=== PATIENT | female | born 1935 | race Caucasian/White ===

== ENCOUNTER 2017-12-29 00:25 | Inpatient (IN) | payer OTHER, MEDICARE ==
[~2017-12-29] VITALS: Ht 157.5 cm; Wt 71.8 kg
[2017-12-29] VITALS (19 sets, daily range): BP systolic 138–200; BP diastolic 63–100; PULSE 64–112; RESP 20–35; TEMP 98–98.4; O2SAT 92–98
[~2017-12-29 00:25] MED LIST: ASPI81TA82 PO; FURO20 PO; GLIP5 PO; METO50TA PO; MINO100T PO; OMEP20CA5 PO; PRED5TAB PO; SIMV40 PO
[2017-12-29] MEDS ORDERED: METO50TA PO (00:32)
[2017-12-29] MEDS ORDERED: ASPI81TA19 PO (00:32)
[2017-12-29] MEDS ORDERED: SIMV40TA PO (00:32)
[2017-12-29] MEDS ORDERED: GLIP1TAB49 PO (00:32)
[2017-12-29] MEDS ORDERED: SODIUM CHLORIDE 0.9% FLUSH 10 ML FLUSH IVF PRN (00:45)
[2017-12-29] MEDS ORDERED: NITROGLYCERIN 2% OINT 1 GM PACKET TOP ONE (00:45)
--- NOTE | 2017-12-29 01:11 | RADRPT ---
EXAM DATE/TIME: 12/29/2017 00:52 [facility] COMPARISON: CHEST SINGLE AP, January 04, 2016, 22:45. INDICATIONS : Short of breath. MEDICAL HISTORY : None. SURGICAL HISTORY : None. ENCOUNTER: Initial ACUITY: 1 day PAIN SCORE: 0/10 LOCATION: Bilateral chest FINDINGS: Mild cardiomegaly. Surgical clips overlie the mediastinum. There is linear scarring in the left midlu ng. Lungs otherwise clear. Osseous structures are intact. CONCLUSION: Linear scarring in the left midlung. Jose Rios MD on December 29, 2017 at 1:08 Board Certified Radiologist. This report was verified electronically.
[2017-12-29 01:13] LABS: ALBUMIN 3.4 GM/DL (3.4-5.0); ALT (GPT) 14 U/L (10-53); AST (GOT) 11 U/L (15-37); BICARBONATE 35.3 MEQ/L (21.0-32.0); BLOOD UREA NITROGEN 14 MG/DL (7-18); CALCIUM 8.3 MG/DL (8.5-10.1); CHLORIDE 90 MEQ/L (98-107); CREATININE 0.93 MG/DL (0.50-1.00); GLOMERULAR FILTRATION RATE 58 ML/MIN (>89); GLUCOSE,RANDOM 179 MG/DL (74-106); SODIUM (NA) 129 MEQ/L (136-145)
[2017-12-29] MEDS ORDERED: FUROSEMIDE 40 MG/4 ML VIAL IV PUSH ONE (01:15)
[2017-12-29 01:17] LABS: ALKALINE PHOSPHATASE 107 U/L (45-117); TOTAL BILIRUBIN ADULT 0.4 MG/DL (0.2-1.0); TOTAL PROTEIN 7.3 GM/DL (6.4-8.2); TROPONIN I LESS THAN 0.02 NG/ML (0.02-0.05)
[2017-12-29 01:27] LABS: AUTOMATED NEUTROPHIL # 9.3 TH/MM3 (1.8-7.7); BASOPHIL # 0.1 TH/MM3 (0-0.2); BASOPHIL % 0.5 % (0.0-2.0); EOSINOPHIL # 0.3 TH/MM3 (0-0.4); EOSINOPHIL % 2.1 % (0.0-4.0); HEMATOCRIT 42.4 % (35.0-46.0); HEMOGLOBIN 14.5 GM/DL (11.6-15.3); LYMPH % 27.1 % (9.0-44.0); LYMPHOCYTE # 3.9 TH/MM3 (1.0-4.8); MEAN CORPUSCULAR HEMOGLOBIN 30.5 PG (27.0-34.0); MEAN CORPUSCULAR HGB CONC 34.2 % (32.0-36.0); MEAN PLATELET VOLUME 7.2 FL (7.0-11.0); MONO % 6.1 % (0.0-8.0); MONOCYTE # 0.9 TH/MM3 (0-0.9); NEUT % 64.2 % (16.0-70.0); PLATELET COUNT 293 TH/MM3 (150-450); RED BLOOD COUNT 4.76 MIL/MM3 (4.00-5.30); RED CELL DISTRIBUTION WIDTH 14.1 % (11.6-17.2); WHITE BLOOD COUNT 14.4 TH/MM3 (4.0-11.0)
[2017-12-29 01:28] LABS: INTERNATIONAL NORMALIZED RATIO 1.1 RATIO; PROTHROMBIN TIME - PATIENT 10.7 SEC (9.8-11.6)
--- NOTE | 2017-12-29 05:21 | PD ---
HPI . Chest pain Chief Complaint: Chest Pain Time Seen by Provider: 00:33 Travel History International Travel<30 days: No Contact w/Intl Traveler<30days: No Traveled to known affect area: No History of Present Illness HPI 82-year-old female complains of having substernal right-sided chest pain for the past several hours. Patient administered a nitroglycerin, with some relief. Patient also has significant dyspnea, with orthopnea. Patient denies any fever chills sweats or cough. Patient notes that the chest pain is like a dull squeezing ache. Pain is currently resolved [facility] Past Medical History Narrative Medical Past medical history reviewed Asthma: Yes Cardiovascular Problems: Yes Congestive Heart Failure: Yes COPD: Yes Diabetes: Yes Patient Takes Glucophage: Yes Diminished Hearing: No Hypertension: Yes Respiratory: Yes Immunizations Current: Yes Myocardial Infarction: Yes Tetanus Vaccination: Unknown Influenza Vaccination: No ?: Not Past Surgical History Cardiac Surgery: Yes (CABG in 2007) Pacemaker: No Social History Alcohol Use: No Tobacco Use: Yes Substance Use: No Allergies-Medications (Allergen,Severity, Reaction): Coded Allergies: morphine (Unverified Allergy, Severe, 12/29/17) codeine (Unverified Allergy, Intermediate, NAUSEA, 12/29/17) penicillin G (Unverified Allergy, Mild, 12/29/17) Reported Meds & Prescriptions Reported Meds & Active Scripts Active Reported Simvastatin 40 Mg Tab 40 Mg PO HS Metoprolol Tartrate 50 Mg Tab 50 Mg PO BID Aspir-Low (Aspirin) 81 Mg Tabdr 81 Tab PO DAILY Glipizide ER (Glipizide) 5 Mg Lior 5 Mg PO DAILY Take with breakfast or first main meal of the day. Narrative Medication Allergies and medications reviewed Review of Systems General / Constitutional: No: Fever Eyes: No: Visual changes HENT: No: Headaches Cardiovascular: Positive: Chest Pain or Discomfort, Dyspnea on exertion Respiratory: Positive: Shortness of Breath, Orthopnea, No: Hemoptysis, Stridor , Night Sweats, Pleuritic Pain Gastrointestinal: No: Abdominal Pain Genitourinary: No: Dysuria Musculoskeletal: No: Pain Skin: No Rash Neurologic: No: Weakness Psychiatric: No: Depression Endocrine: No: Polydipsia Hematologic/Lymphatic: No: Easy Bruising Physical Exam Narrative GENERAL: Awake and alert, mild to moderate respiratory distress, vital signs decreased oxygen saturation on room air 88%, 94% on 4 L nasal cannula SKIN: Warm and dry. No diaphoresis cyanosis or pallor HEAD: Atraumatic. Normocephalic. EYES: Pupils equal and round. No scleral icterus. No injection or drainage. ENT: No nasal bleeding or discharge. Mucous membranes pink and moist. NECK: Trachea midline. No JVD. Supple, no stridor CARDIOVASCULAR: Regular rate and rhythm. RESPIRATORY: Slight tachypnea, rales at bases, difficult exam secondary to body habitus. GASTROINTESTINAL: Abdomen soft, non-tender, nondistended. Hepatic and splenic margins not palpable. MUSCULOSKELETAL: Extremities without clubbing, cyanosis, or edema. No obvious deformities. NEUROLOGICAL: Awake and alert. No obvious focal deficits PSYCHIATRIC: Appropriate mood and affect; insight and judgment normal. Data Data Last Documented VS Vital Signs Date Time Temp Pulse Resp B/P (MAP) Pulse Ox O2 Delivery O2 Flow Rate FiO2 12/29/17 04:46 71 24 174/74 (107) 96 BiPAP 35 12/29/17 02:24 2.00 12/29/17 00:33 98.0 Orders Orders Electrocardiogram (12/29/17 00:42) B-Type Natriuretic Peptide (12/29/17 00:42) Ckmb (Isoenzyme) Profile (12/29/17 00:42) Complete Blood Count With Diff (12/29/17 00:42) Comprehensive Metabolic Panel (12/29/17 00:42) Magnesium (Mg) (12/29/17 00:42) Prothrombin Time / Inr (Pt) (12/29/17 00:42) Act Partial Throm Time (Ptt) (12/29/17 00:42) Troponin I (12/29/17 00:42) Chest, Single Ap (12/29/17 00:42) Ecg Monitoring (12/29/17 00:42) Bilateral Bp Monitoring (12/29/17 00:42) Iv Access Insert/Monitor (12/29/17 00:42) Oximetry (12/29/17 00:42) Oxygen Administration (12/29/17 00:42) Nitroglycerin 2% Oint (Nitroglycerin 2% (12/29/17 00:45) Sodium Chloride 0.9% Flush (Ns Flush) (12/29/17 00:45) Furosemide Inj (Lasix Inj) (12/29/17 01:15) Arterial Blood Gas (Abg) (12/29/17 ) Troponin I (12/29/17 03:23) Arterial Blood Gas (Abg) (12/29/17 04:23) Labs Laboratory Tests Test 12/29/17 00:45 12/29/17 02:35 12/29/17 03:45 White Blood Count 14.4 TH/MM3 Red Blood Count 4.76 MIL/MM3 Hemoglobin 14.5 GM/DL Hematocrit 42.4 % Mean Corpuscular Volume 89.0 FL Mean Corpuscular Hemoglobin 30.5 PG Mean Corpuscular Hemoglobin Concent 34.2 % Red Cell Distribution Width 14.1 % Platelet Count 293 TH/MM3 Mean Platelet Volume 7.2 FL Neutrophils (%) (Auto) 64.2 % Lymphocytes (%) (Auto) 27.1 % Monocytes (%) (Auto) 6.1 % Eosinophils (%) (Auto) 2.1 % Basophils (%) (Auto) 0.5 % Neutrophils # (Auto) 9.3 TH/MM3 Lymphocytes # (Auto) 3.9 TH/MM3 Monocytes # (Auto) 0.9 TH/MM3 Eosinophils # (Auto) 0.3 TH/MM3 Basophils # (Auto) 0.1 TH/MM3 CBC Comment DIFF FINAL Differential Comment Prothrombin Time 10.7 SEC Prothromb Time International Ratio 1.1 RATIO Activated Partial Thromboplast Time 28.7 SEC Blood Urea Nitrogen 14 MG/DL Creatinine 0.93 MG/DL Random Glucose 179 MG/DL Total Protein 7.3 GM/DL Albumin 3.4 GM/DL Calcium Level 8.3 MG/DL Magnesium Level 2.0 MG/DL Alkaline Phosphatase 107 U/L Aspartate Amino Transf (AST/SGOT) 11 U/L Alanine Aminotransferase (ALT/SGPT) 14 U/L Total Bilirubin 0.4 MG/DL Sodium Level 129 MEQ/L Potassium Level 4.2 MEQ/L Chloride Level 90 MEQ/L Carbon Dioxide Level 35.3 MEQ/L Anion Gap 4 MEQ/L Estimat Glomerular Filtration Rate 58 ML/MIN Total Creatine Kinase 89 U/L Troponin I LESS THAN 0.02 NG/ML LESS THAN 0.02 NG/ML B-Type Natriuretic Peptide 465 PG/ML Blood Gas Puncture Site RT RADIAL Blood Gas Patient Temperature 98.6 Blood Gas HCO3 35 mmol/L Blood Gas Base Excess 7.8 mmol/L Blood Gas Oxygen Saturation 93 % Arterial Blood pH 7.25 Arterial Blood Partial Pressure CO2 83 mmHg Arterial Blood Partial Pressure O2 85 mmHG Arterial Blood Oxygen Content 19.2 Vol % Arterial Blood Carboxyhemoglobin 1.9 % Arterial Blood Methemoglobin 0.5 % Blood Gas Hemoglobin 14.7 G/DL Oxygen Delivery Device NASAL CANNULA Blood Gas Liter Flow 3 L/M [facility] Medical Decision Making Medical Screen Exam Complete: Yes Emergency Medical Condition: Yes Medical Record Reviewed: Yes Differential Diagnosis Chest pain, CHF, COPD exacerbation, dyspnea Narrative Course EKG sinus rhythm at 72 bpm, ST depressions in leads I to with reciprocal elevation in aVR, biphasic waves in V4 V5 and V6. Compared to old EKGs, no significant change. Frequent PVCs noted on monitor worker Chest x-ray no acute changes. Scarring at bases. Patient's telemetry examinations reviewed, no significant abnormality is. Patient's troponin is normal and flat at 0 and 3 hours. ABG performed, patient has decreased pH is 7.25 with marked hypercapnia. Patient is hesitant to use CPAP mask, patient's oxygen dialed down from 4 L to 2 L to improve patient's minute ventilation. Patient had a repeat ABG performed with no interval improvement. Patient was started on CPAP. Admitted to hospitalist service. Diagnosis Primary Impression: COPD exacerbation Additional Impression: Chest pain Qualified Codes: R07.9 - Chest pain, unspecified Admitting Information Admitting Physician Requests: Admit Alex Agosto MD Dec 29, 2017 05:21
[2017-12-29] MEDS ORDERED: SODIUM CHLOR 0.9% 1000 ML INJ 1,000 ML IV SCH (06:27)
[2017-12-29] MEDS ORDERED: MAGNESIUM SULFATE INJ 2 GM in SODIUM CHLORIDE 0.9% INJ 96 ML IV PRN (06:30)
[2017-12-29] MEDS ORDERED: POTASSIUM CHLORIDE 25 MEQ EFFERVESCENT TAB PO PRN (06:30)
[2017-12-29] MEDS ORDERED: DEXTROSE 50% IN WATER 50 ML VIAL(D50) IV PUSH PRN (06:30)
[2017-12-29] MEDS ORDERED: MISCELLANEOUS NURSING INFORMATION XX SCH (06:30)
[2017-12-29] MEDS ORDERED: ONDANSETRON HCL 4 MG/2 ML VIAL IV PUSH PRN (06:30)
[2017-12-29] MEDS ORDERED: MAGNESIUM HYDROXIDE SUSP 30 ML CUP PO PRN (06:30)
[2017-12-29] MEDS ORDERED: MAGNESIUM SULFATE INJ 4 GM in SODIUM CHLORIDE 0.9% INJ 92 ML IV PRN (06:30)
[2017-12-29] MEDS ORDERED: POTASSIUM PHOSPHATE INJ 30 MMOL in SODIUM CHLOR 0.9% 250 ML INJ 250 ML IV PRN (06:30)
[2017-12-29] MEDS ORDERED: POTASSIUM PHOSPHATE MONOBASIC 500 MG TAB PO/TUBE PRN (06:30)
[2017-12-29] MEDS ORDERED: methylPREDNISolone SOD SUCC 125 MG/2 ML VIAL IV PUSH ONE (06:30)
[2017-12-29] MEDS ORDERED: POTASSIUM CHLOR 40 MEQ PREMIX 100 ML IV PRN ×2 (06:30)
[2017-12-29] MEDS ORDERED: POTASSIUM CHLOR 20 MEQ PREMIX 100 ML IV PRN ×2 (06:30)
[2017-12-29] MEDS ORDERED: SODIUM PHOSPHATE INJ 30 MMOL in SODIUM CHLOR 0.9% 250 ML INJ 240 ML IV PRN (06:30)
[2017-12-29] MEDS ORDERED: CHLORHEXIDINE GLUCONATE 2 % 1 PACK (2 CLOTHS) TOP PRN (06:30)
[2017-12-29] MEDS ORDERED: MAGNESIUM OXIDE 400 MG TAB PO PRN (06:30)
[2017-12-29] MEDS ORDERED: RESP: ALBUTEROL 2.5 MG/IPRATROPIUM 0.5 MG NEB (PRN) INH (06:30)
[2017-12-29] MEDS ORDERED: POTASSIUM PHOSPHATE MONOBASIC 500 MG TAB PO PRN (06:30)
[2017-12-29] MEDS: RESP: ALBUTEROL 2.5 MG/IPRATROPIUM 0.5 MG NEB (SCH) INH ×4 (07:27→21:11)
[2017-12-29] MEDS: ENOXAPARIN SODIUM 40 MG/0.4 ML SYRINGE SQ SCH (12:47)
[2017-12-29] MEDS: ASPIRIN EC 81 MG TABEC PO SCH (12:48)
[2017-12-29] MEDS: DOCUSATE SODIUM 50 MG/SENNA 8.6 MG TAB PO SCH ×2 (12:48→21:00)
[2017-12-29] MEDS ORDERED: POTASSIUM CHLORIDE 10 MEQ CONTROLLED RELEASE TAB PO ONE (14:30)
--- NOTE | 2017-12-29 15:14 | HHI.HP ---
HPI Service Critical Care Medicine Primary Care Physician No Primary Care Physician Admission Diagnosis Overdose Diagnosis: Chief Complaint: shortness of breath Travel History International Travel<30 Days: No Contact w/Intl Traveler <30 Da: No Traveled to Known Affected Are: No History of Present Illness Seen and evaluated around 06:20am. delayed note entry. 82yF with h/o o2 dependent copd who presents with worsening SOB over the past 3 days. states this has accompanied with worsening sputum production which "looks like phegm". denies change in color or consistency in sputum. denies fever, chills. denies chest pain. no sick contacts. initially placed on o2 without improvement in her abg which showed significant hypercarbia and pco2 in the 80s. placed on BiPAP. history difficult to obtain due to tachypnea and bipap in place. ROS otherwise negative. Review of Systems ROS Limitations: Clinical Condition Constitutional: DENIES: Diaphoretic episodes, Fatigue, Fever, Chills Respiratory: COMPLAINS OF: Wheezing, Sputum production, Shortness of breath, DENIES: Cough, Hemoptysis Cardiovascular: DENIES: Chest pain, Palpitations, Dyspnea on Exertion, PND, Lower Extremity Edema Gastrointestinal: DENIES: Abdominal pain, Black stools, Bloody stools, Constipation, Diarrhea, Nausea, Vomiting Past Family Social History Allergies: Coded Allergies: morphine (Unverified Allergy, Severe, 12/29/17) codeine (Unverified Allergy, Intermediate, NAUSEA, 12/29/17) penicillin G (Unverified Allergy, Mild, 12/29/17) Past Medical History Asthma CHF, unknown type COPD, o2 dependent Diabetes HTN prior [place] Past Surgical History CABG in 2007 Reported Medications Simvastatin 40 Mg Tab 40 Mg PO HS Metoprolol Tartrate 50 Mg Tab 50 Mg PO BID Aspir-Low (Aspirin) 81 Mg Tabdr 81 Tab PO DAILY Glipizide ER (Glipizide) 5 Mg Lior 5 Mg PO DAILY Take with breakfast or first main meal of the day. Active Ordered Medications See MAR Family History reviewed and found to be noncontributory to her acute illness. Social History +tob use, denies etoh, doa. Physical Exam Vital Signs Vital Signs Date Time Temp Pulse Resp B/P (MAP) Pulse Ox O2 Delivery O2 Flow Rate FiO2 12/29/17 11:35 95 Nasal Cannula 2.00 12/29/17 10:00 77 12/29/17 08:20 12/29/17 08:00 71 12/29/17 08:00 72 12/29/17 07:29 95 35 12/29/17 07:00 74 164/70 (101) 94 BiPAP 12/29/17 06:12 71 20 170/72 (104) 94 BiPAP 35 12/29/17 04:46 71 24 174/74 (107) 96 BiPAP 35 12/29/17 04:45 97 BiPAP 35 12/29/17 04:45 98 28 12/29/17 03:49 68 20 146/67 (93) 95 Nasal Cannula 12/29/17 02:24 64 20 149/63 (91) 97 Nasal Cannula 2.00 12/29/17 02:12 97 Nasal Cannula 2.00 12/29/17 00:37 74 24 149/71 (97) 96 Nasal Cannula 12/29/17 00:33 98.0 70 22 200/100 (133) 98 Physical Exam GENERAL: Elderly female, sitting in bed, acute respiratory distress HEENT: Normocephalic. Atraumatic. Pupils equal, round, reactive, conjugate. Mucous membranes are moist NECK: Trachea is midline. There is no JVD. CHEST: Labored. Tachypneic. BiPAP in place. Bilateral expiratory wheezing CARDIOVASCULAR: Tachycardic rate, regular rhythm. Sinus by telemetry ABDOMEN: Soft, nontender, nondistended. No guarding. MUSCULOSKELETAL: Pulses 2+. No peripheral edema. NEUROLOGICAL: RASS -1. Follows commands. No focal deficits. Laboratory Laboratory Tests Test 12/29/17 00:45 12/29/17 02:35 12/29/17 03:45 12/29/17 04:30 White Blood Count 14.4 Red Blood Count 4.76 Hemoglobin 14.5 Hematocrit 42.4 Mean Corpuscular Volume 89.0 Mean Corpuscular Hemoglobin 30.5 Mean Corpuscular Hemoglobin Concent 34.2 Red Cell Distribution Width 14.1 Platelet Count 293 Mean Platelet Volume 7.2 Neutrophils (%) (Auto) 64.2 Lymphocytes (%) (Auto) 27.1 Monocytes (%) (Auto) 6.1 Eosinophils (%) (Auto) 2.1 Basophils (%) (Auto) 0.5 Neutrophils # (Auto) 9.3 Lymphocytes # (Auto) 3.9 Monocytes # (Auto) 0.9 Eosinophils # (Auto) 0.3 Basophils # (Auto) 0.1 CBC Comment DIFF FINAL Differential Comment Prothrombin Time 10.7 Prothromb Time International Ratio 1.1 Activated Partial Thromboplast Time 28.7 Blood Urea Nitrogen 14 Creatinine 0.93 Random Glucose 179 Total Protein 7.3 Albumin 3.4 Calcium Level 8.3 Magnesium Level 2.0 Alkaline Phosphatase 107 Aspartate Amino Transf (AST/SGOT) 11 Alanine Aminotransferase (ALT/SGPT) 14 Total Bilirubin 0.4 Sodium Level 129 Potassium Level 4.2 Chloride Level 90 Carbon Dioxide Level 35.3 Anion Gap 4 Estimat Glomerular Filtration Rate 58 Total Creatine Kinase 89 Troponin I LESS THAN 0.02 LESS THAN 0.02 B-Type Natriuretic Peptide 465 Blood Gas Puncture Site RT RADIAL RT RADIAL Blood Gas Patient Temperature 98.6 98.6 Blood Gas HCO3 35 35 Blood Gas Base Excess 7.8 7.9 Blood Gas Oxygen Saturation 93 93 Arterial Blood pH 7.25 7.26 Arterial Blood Partial Pressure CO2 83 81 Arterial Blood Partial Pressure O2 85 83 Arterial Blood Oxygen Content 19.2 19.5 Arterial Blood Carboxyhemoglobin 1.9 1.8 Arterial Blood Methemoglobin 0.5 0.5 Blood Gas Hemoglobin 14.7 14.9 Oxygen Delivery Device NASAL CANNULA NASAL CANNULA Blood Gas Liter Flow 3 2 Test 12/29/17 06:45 12/29/17 10:45 Blood Gas Puncture Site RT RADIAL RT RADIAL Blood Gas Patient Temperature 98.6 98.6 Blood Gas HCO3 35 34 Blood Gas Base Excess 8.1 7.9 Blood Gas Oxygen Saturation 93 91 Arterial Blood pH 7.27 7.35 Arterial Blood Partial Pressure CO2 78 62 Arterial Blood Partial Pressure O2 78 70 Arterial Blood Oxygen Content 19.7 18.7 Arterial Blood Carboxyhemoglobin 1.8 1.9 Arterial Blood Methemoglobin 0.6 0.7 Blood Gas Hemoglobin 15.1 14.6 Oxygen Delivery Device BIPAP BiPAP Blood Gas Ventilator Setting IPAP12 [id number] Blood Gas Inspired Oxygen 35 35 Result Diagram: 12/29/174412/29/1744 Imaging Last Impressions Chest X-Ray 12/29/1741 Signed Impressions: Service Date/Time: Friday, December 29, 2017 00:52 - CONCLUSION: Linear scarring in the left midlung. MD Jona Skinner VTE Risk Assessment Caprini VTE Risk Assessment: Mod/High Risk (score >= 2) Caprini Risk Assessment Model Point Value = 1 Point Value = 2 Point Value = 3 Point Value = 5 Age 41-60 Minor surgery BMI > 25 kg/m2 Swollen legs Varicose veins or History of unexplained or recurrent spontaneous Oral contraceptives or hormone replacement Sepsis (< 1 month) Serious lung disease, including pneumonia (< 1 month) Abnormal pulmonary function Acute myocardial infarction Congestive heart failure (< 1 month) History of inflammatory bowel disease Medical patient at bed rest Age 61-74 Arthroscopic surgery Major open surgery (> 45 min) Laparoscopic surgery (> 45 min) Malignancy Confined to bed (> 72 hours) Immobilizing plaster cast Central venous access Age >= 75 History of VTE Family history of VTE Factor V Leiden Prothrombin [id number] Lupus anticoagulant Anticardiolipin antibodies Elevated serum homocysteine Heparin-induced thrombocytopenia Other congenital or acquired thrombophilia Stroke (< 1 month) Elective arthroplasty Hip, pelvis, or leg fracture Acute spinal cord injury (< 1 month) Prophylaxis Regimen Total Risk Factor Score Risk Level Prophylaxis Regimen 0-1 Low Early ambulation 2 Moderate Order ONE of the following: *Sequential Compression Device (SCD) *Heparin 5000 units SQ BID 3-4 Higher Order ONE of the following medications: *Heparin 5000 units SQ TID *Enoxaparin/Lovenox 40 mg SQ daily (WT < 150 kg, CrCl > 30 mL/min) *Enoxaparin/Lovenox 30 mg SQ daily (WT < 150 kg, CrCl > 10-29 mL/min) *Enoxaparin/Lovenox 30 mg SQ BID (WT < 150 kg, CrCl > 30 mL/min) AND/OR *Sequential Compression Device (SCD) 5 or more Highest Order ONE of the following medications: *Heparin 5000 units SQ TID (Preferred with Epidurals) *Enoxaparin/Lovenox 40 mg SQ daily (WT < 150 kg, CrCl > 30 mL/min) *Enoxaparin/Lovenox 30 mg SQ daily (WT < 150 kg, CrCl > 10-29 mL/min) *Enoxaparin/Lovenox 30 mg SQ BID (WT < 150 kg, CrCl > 30 mL/min) AND *Sequential Compression Device (SCD) Assessment and Plan Assessment and Plan Assessment: 82-year-old female with history of oxygen dependent COPD and presents with what appears to be clinically COPD exacerbation. She denies any sick contacts or other history to suggest infectious etiology. We will check flu swab. BiPAP, steroids, frequent nebs. Admit to ICU. COPD Exacerbation Acute hypoxic and hypercarbic respiratory failure requiring NIPPV - steroids - nebs - bipap - wean fio2 for goal spo2 > 88% - serial abg - avoid long-acting sedatives. SCDs SQH advance diet when respiratory distress improves. Admit to ICU. Henok Early MD Dec 29, 2017 15:14
[2017-12-29] MEDS: PANTOPRAZOLE SOD 20 MG DELAYED RELEASE TAB PO SCH ×2 (15:27→20:59)
[2017-12-29] MEDS: INSULIN NovoLIN REGULAR SUPPLEMENTAL SCALE SQ SCH ×2 (15:28→18:32)
[2017-12-29] MEDS: glipiZIDE 5 MG TAB PO SCH (16:00)
[2017-12-29] MEDS: methylPREDNISolone SOD SUCC 125 MG/2 ML VIAL IV PUSH SCH (20:59)
[2017-12-29] MEDS: PRAVASTATIN SOD 80 MG TAB PO SCH (20:59)
[2017-12-29] MEDS: METOPROLOL TARTRATE 50 MG TAB PO SCH (21:00)
--- NOTE | 2017-12-29 21:23 | EKG ---
Date Performed: 12/29/2017 Time Performed: 00:33:20 PTAGE: 82 years EKG: Sinus rhythm WITH OCCASIONAL VENTRICULAR PREMATURE COMPLEXES LEFT VENTRICULAR HYPERTROPHY AND ST-T CHANGE INFERIO R MYOCARDIAL INFARCTION ABNORMAL ECG INTERPRETATION BASED ON A DEFAULT AGE OF 40 YEARS PREVIOUS TRACING : 01/05/2016 03.57 Since the prior tracing, there has been no significan t change DOCTOR: David Maldonado Interpretating Date/Time 12/29/2017 21:21:39
[2017-12-29] MEDS: NITROGLYCERIN 0.4 MG SL 25 TABS/BTL SL PRN (22:41)
[2017-12-30] VITALS (16 sets, daily range): BP systolic 123–143; BP diastolic 56–72; PULSE 66–82; RESP 14–26; TEMP 97.1–98.6; O2SAT 92–99
[2017-12-30] MEDS: RESP: ALBUTEROL 2.5 MG/IPRATROPIUM 0.5 MG NEB (SCH) INH ×6 (00:22→20:45)
[2017-12-30] MEDS: INSULIN NovoLIN REGULAR SUPPLEMENTAL SCALE SQ SCH ×4 (00:24→18:41)
[2017-12-30] MEDS: CHLORHEXIDINE GLUCONATE 2 % 1 PACK (2 CLOTHS) TOP SCH (04:00)
[2017-12-30 04:38] LABS: HEMATOCRIT 40.6 % (35.0-46.0); HEMOGLOBIN 13.9 GM/DL (11.6-15.3); MEAN CELL VOLUME 88.7 FL (80.0-100.0); MEAN CORPUSCULAR HEMOGLOBIN 30.3 PG (27.0-34.0); MEAN CORPUSCULAR HGB CONC 34.2 % (32.0-36.0); MEAN PLATELET VOLUME 7.7 FL (7.0-11.0); PLATELET COUNT 272 TH/MM3 (150-450); RED BLOOD COUNT 4.58 MIL/MM3 (4.00-5.30); RED CELL DISTRIBUTION WIDTH 13.7 % (11.6-17.2); WHITE BLOOD COUNT 18.2 TH/MM3 (4.0-11.0)
[2017-12-30 05:03] LABS: BICARBONATE 31.8 MEQ/L (21.0-32.0); CALCIUM 9.1 MG/DL (8.5-10.1); CREATININE 1.35 MG/DL (0.50-1.00)
--- NOTE | 2017-12-30 06:34 | RADRPT ---
EXAM DATE/TIME: 12/30/2017 05:31 [facility] COMPARISON: CHEST SINGLE AP, December 29, 2017, 0:52. INDICATIONS : Short of breath. MEDICAL HISTORY : None. SURGICAL HISTORY : None. ENCOUNTER: Subsequent ACUITY: 2 days PAIN SCORE: Non-responsive. LOCATION: Bilateral chest FINDINGS: There is linear scarring in the left midlung, cardiomegaly and mediastinal clips. No consolidation. H igh riding humeral heads. CONCLUSION: No significant change has occurred. Jose Rios MD on December 30, 2017 at 6:32 Board Certified Radiologist. This report was verified electronically.
[2017-12-30] MEDS: NITROGLYCERIN 0.4 MG SL 25 TABS/BTL SL PRN (07:29)
[2017-12-30] MEDS: ENOXAPARIN SODIUM 40 MG/0.4 ML SYRINGE SQ SCH (08:56)
[2017-12-30] MEDS: methylPREDNISolone SOD SUCC 125 MG/2 ML VIAL IV PUSH SCH (08:58)
[2017-12-30] MEDS: PANTOPRAZOLE SOD 20 MG DELAYED RELEASE TAB PO SCH ×2 (09:00→20:58)
[2017-12-30] MEDS: ASPIRIN EC 81 MG TABEC PO SCH (09:01)
[2017-12-30] MEDS: DOCUSATE SODIUM 50 MG/SENNA 8.6 MG TAB PO SCH ×2 (09:03→20:59)
[2017-12-30] MEDS: METOPROLOL TARTRATE 50 MG TAB PO SCH ×2 (09:03→20:59)
[2017-12-30] MEDS: glipiZIDE 5 MG TAB PO SCH ×2 (09:18→16:52)
--- NOTE | 2017-12-30 15:00 | EKG ---
Date Performed: 12/29/2017 Time Performed: 22:00:50 PTAGE: 82 years EKG: Sinus rhythm with aberrantly conducted supraventricular complexes. LVH with secondary repolarization abnormality Anterolateral ST-T changes are probably due to ventricular hypertrophy Abnormal ECG PREVIOUS TRACING : 12/29/2017 00.33 PACs have increased since prior tracing. Clinical correlati on is recommended. DOCTOR: Kev Gonzalez Interpretating Date/Time 12/30/2017 15:00:05
--- NOTE | 2017-12-30 15:41 | HHI.PR ---
Subjective Remarks The patient was take her home medications. She says she does not have a lung doctor she follows up with regularly. She says she cannot tolerate steroids. She would like to walk around. Discussed with nursing at the bedside. Objective Vitals Vital Signs Date Time Temp Pulse Resp B/P (MAP) Pulse Ox O2 Delivery O2 Flow Rate FiO2 12/30/17 12:00 66 12/30/17 12:00 98.1 82 26 126/64 (84) 95 12/30/17 10:00 66 12/30/17 08:00 97.1 82 20 135/60 (85) 96 12/30/17 08:00 71 12/30/17 08:00 96 Nasal Cannula 2.00 12/30/17 07:40 95 Nasal Cannula 2.00 12/30/17 06:00 70 12/30/17 04:00 98.4 74 17 141/72 (95) 98 12/30/17 04:00 74 12/30/17 03:50 96 Nasal Cannula 2.00 12/30/17 02:00 73 12/30/17 00:24 99 35 12/30/17 00:00 80 12/30/17 00:00 98.6 80 14 143/62 (89) 98 12/29/17 22:00 112 12/29/17 21:14 95 Nasal Cannula 2.00 12/29/17 20:00 98.4 112 35 162/69 (100) 92 12/29/17 20:00 112 12/29/17 19:00 94 Nasal Cannula 2.00 35 12/29/17 18:00 103 12/29/17 16:00 98.4 92 22 143/78 (99) 92 12/29/17 16:00 92 I/O 12/29/17 12/29/17 12/29/17 12/30/17 12/30/17 12/30/17 07:00 15:00 23:00 07:00 15:00 23:00 Intake Total 440 ml Output Total 1150 ml 500 ml 600 ml Balance -1150 ml -60 ml -600 ml Intake Oral 440 ml Output Urine Total 1150 ml 500 ml 600 ml # Voids 2 # Bowel Movements 0 1 Result Diagram: 12/30/17 0345 12/30/17 034 Imaging Last Impressions Chest X-Ray 12/30/17 0600 Signed Impressions: Service Date/Time: December 05:31 - CONCLUSION: No significant change has occurred. Jose Rios MD Objective Remarks GENERAL: Elderly female, sitting in bed, comfortable. HEENT: Normocephalic. Atraumatic. Pupils equal, round, reactive, conjugate. Mucous membranes are moist NECK: Trachea is midline. There is no JVD. CHEST: Decreased air movement. CARDIOVASCULAR: Regular rate and rhythm. ABDOMEN: Soft, nontender, nondistended. No guarding. MUSCULOSKELETAL: Pulses 2+. No peripheral edema. NEUROLOGICAL: Follows commands. No focal deficits. Medications and IVs Current Medications Medications (Trade) Dose Ordered Sig/Linden Route Start Time Stop Time Status Last Admin (NS Flush) 2 ml UNSCH PRN IVF 12/29/17 00:45 (Ecotrin Ec) 81 mg DAILY PO 12/29/17 09:00 12/30/17 09:01 (Pravachol) 80 mg HS PO 12/29/17 21:00 12/29/17 20:59 Potassium Chloride 100 ml @ 50 mls/hr Q2H PRN IV 12/29/17 06:30 Potassium Chloride 100 ml @ 50 mls/hr Q2H PRN IV 12/29/17 06:30 (K-Lyte Cl Eff) 50 meq UNSCH PRN PO 12/29/17 06:30 Potassium Chloride 100 ml @ 25 mls/hr UNSCH PRN IV 12/29/17 06:30 Potassium Chloride 100 ml @ 50 mls/hr Q2H PRN IV 12/29/17 06:30 Magnesium Sulfate 4 gm/Sodium Chloride 100 ml @ 50 mls/hr UNSCH PRN IV 12/29/17 06:30 (Mag-Ox) 800 mg UNSCH PRN PO 12/29/17 06:30 Magnesium Sulfate 2 gm/Sodium Chloride 100 ml @ 50 mls/hr UNSCH PRN IV 12/29/17 06:30 (K-Phos) 2,000 mg Q4H PRN PO 12/29/17 06:30 Sodium Phosphate 30 mmol/Sodium Chloride 250 ml @ 42 mls/hr UNSCH PRN IV 12/29/17 06:30 (K-Phos) 2,000 mg UNSCH PRN PO/TUBE 12/29/17 06:30 Potassium Phosphate 30 mmol/ Sodium Chloride 260 ml @ 42 mls/hr UNSCH PRN IV 12/29/17 06:30 (D50w (Vial) Inj) 25 ml UNSCH PRN IV PUSH 12/29/17 06:30 (NovoLIN R SUPPLEMENTAL SCALE) 1 Q6HR SQ 12/29/17 12:00 12/30/17 06:31 (SoluMEDROL INJ) 60 mg Q12HR IV PUSH 12/29/17 21:00 12/30/17 08:58 (Duoneb Neb) 1 ampule Q2HR NEB PRN INH 12/29/17 06:30 (Duoneb Neb) 1 ampule Q4HR NEB INH 12/29/17 08:00 12/30/17 11:52 (Zofran Inj) 4 mg Q6H PRN IV PUSH 12/29/17 06:30 Miscellaneous Information 1 Q361D XX 12/29/17 06:30 (Chlorhexidine 2% Cloth) 3 pack Taper DAILY@04 TOP 12/30/17 04:00 12/26/18 03:59 (Chlorhexidine 2% Cloth) 3 pack UNSCH PRN TOP 12/29/17 06:30 (Luz-Colace) 1 tab BID PO 12/29/17 09:00 12/30/17 09:03 (Milk Of Magnesia Liq) 30 ml Q12H PRN PO 12/29/17 06:30 (Lopressor) 50 mg BID PO 12/29/17 21:00 12/30/17 09:03 (Protonix) 20 mg BID PO 12/29/17 15:15 12/30/17 09:00 (Nitrostat Sl) 0.4 mg Q5M PRN SL 12/29/17 22:00 12/30/17 07:29 (Lovenox Inj) 30 mg Q24H SQ 12/31/17 09:00 (Glucotrol) 2.5 mg BID@08,17 PO 12/30/17 17:00 UNV A/P Assessment and Plan Acute hypoxic and hypercarbic respiratory failure/ COPD S/p BiPAP. She has a history of COPD and reports a history of asbestosis. CXR with scarring of right midlung. - dc steroids as pt endorses intolerance to them. - nebs. - bipap as needed. - wean fio2 for goal spo2 > 88%. - PT. - IS. - pulmonology consult requested. - IV doxycycline. Acute renal failure Possibly s/t overdiuresis. - hold home Bumex and losartan. - follow BMP. DM Glucose fluctuates. - d/c steroids. - continue home glipizide. - ISS. Hyponatremia Possibly chronic. - follow BMP. PPx: Heparin Navneet Gaitan DO Dec 30, 2017 15:41
[2017-12-30] MEDS ORDERED: PILL SPLITTER OTHER PRN (15:45)
[2017-12-30] MEDS: DOXYCYCLINE INJ 100 MG in SODIUM CHLORIDE 0.9% INJ 100 ML IV SCH (16:52)
[2017-12-30] MEDS: methylPREDNISolone SOD SUCC 40 MG/1 ML VIAL IV SCH (19:00)
--- NOTE | 2017-12-30 20:55 | RADRPT ---
EXAM DATE/TIME: 12/30/2017 20:30 [facility] COMPARISON: No previous studies available for comparison. INDICATIONS : Shortness of breath, congestion, and abnormal chest radiograph. RADIATION DOSE: 9.59 CTDIvol (mGy) MEDICAL HISTORY : Cardiovascular disease. Chronic obstructive pulmonary disease. Diabetes mellitus type 2. SURGICAL HISTORY : None. ENCOUNTER: Initial ACUITY: 1 day PAIN SCALE: 5/10 LOCATION: chest TECHNIQUE: Volumetric scanning of the chest was performed. Using automated exposure control and adjustment of t he mA and/or kV according to patient size, radiation dose was kept as low as reasonably achievable to obtain optimal diagnostic quality images. DICOM format image data is available electronically for r eview and comparison. Follow-up recommendations for detected pulmonary nodules are based at a minimum on nodule size and pa tient risk factors according to Fleischner Society Guidelines. FINDINGS: There is linear atelectasis or scarring at both lung bases similar in appearance to December 2015. Mi ld emphysema. There is no hilar, mediastinal or axillary adenopathy. Moderate to severe coronary calcifications. No acute findings in the upper abdomen. Degenerative disc disease in the thoracic spine. CONCLUSION: 1. No acute findings. Atelectasis and scarring mostly at the lung bases similar to 2016. Moderate to severe coronary calcifications. Michael Valladares MD on December 30, 2017 at 20:49 Board Certified Radiologist. This report was verified electronically.
[2017-12-30] MEDS: PRAVASTATIN SOD 80 MG TAB PO SCH (20:58)
[2017-12-31] VITALS (11 sets, daily range): BP systolic 114–149; BP diastolic 56–66; PULSE 66–75; RESP 26–35; TEMP 98.4–99.1; O2SAT 96–98
[2017-12-31] MEDS: RESP: ALBUTEROL 2.5 MG/IPRATROPIUM 0.5 MG NEB (SCH) INH ×4 (00:09→14:27)
[2017-12-31] MEDS: INSULIN NovoLIN REGULAR SUPPLEMENTAL SCALE SQ SCH ×3 (00:21→12:00)
[2017-12-31] MEDS: methylPREDNISolone SOD SUCC 40 MG/1 ML VIAL IV SCH ×2 (02:33→09:12)
[2017-12-31] MEDS: CHLORHEXIDINE GLUCONATE 2 % 1 PACK (2 CLOTHS) TOP SCH (04:00)
[2017-12-31 04:22] LABS: HEMATOCRIT 42.8 % (35.0-46.0); HEMOGLOBIN 14.4 GM/DL (11.6-15.3); MEAN CELL VOLUME 89.8 FL (80.0-100.0); MEAN CORPUSCULAR HEMOGLOBIN 30.2 PG (27.0-34.0); MEAN CORPUSCULAR HGB CONC 33.7 % (32.0-36.0); MEAN PLATELET VOLUME 7.4 FL (7.0-11.0); PLATELET COUNT 250 TH/MM3 (150-450); RED BLOOD COUNT 4.76 MIL/MM3 (4.00-5.30); RED CELL DISTRIBUTION WIDTH 14.1 % (11.6-17.2); WHITE BLOOD COUNT 17.1 TH/MM3 (4.0-11.0)
[2017-12-31 04:54] LABS: BICARBONATE 34.1 MEQ/L (21.0-32.0); CREATININE 0.99 MG/DL (0.50-1.00)
[2017-12-31] MEDS: DOXYCYCLINE INJ 100 MG in SODIUM CHLORIDE 0.9% INJ 100 ML IV SCH (05:03)
--- NOTE | 2017-12-31 07:59 | MB ---
cc: SARAH GORDON,DYLAN MEJIA,TIMOTHY Valles M.D. DATE OF CONSULTATION 12/30/2017 REASON FOR CONSULTATION COPD and respiratory insufficiency. HISTORY OF PRESENT ILLNESS This is an 82-year-old lady who has had a prior history of COPD, has been coughing and bringing up thick whitish-yellow mucus and had some increased wheezing and leg edema. The patient has been on home oxygen at two liters and has been a smoker for over 50 years. She has had previous x-rays which showed no active pulmonary infiltrates. The patient's chest x-ray upon arrival in the in emergency room showed some linear scarring and atelectasis at the bases. She has had no hemoptysis, fevers or chills or night sweats. PAST MEDICAL HISTORY Has included a history of: 1. Asthma with chronic bronchitis 2. History of CHF. 3. Prior history of hypertension. 4. Diabetes mellitus type 2. 5. She has had a previous PR. PAST SURGICAL HISTORY Includes: 1. CABG x3 in . 2. 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 FAMILY HISTORY Significant for carcinoma of the stomach in her mother. Father had a history of COPD and two sisters with cancers. MEDICATION LIST 1. Metoprolol 50 mg b.i.d. 2. Aspirin one daily 3. Glipizide ER 5 mg daily 4. Simvastatin 40 mg at bedtime ALLERGIES MORPHINE, CODEINE AND PENICILLIN. REVIEW OF SYSTEMS The patient has had some weight loss. Complains of abdominal and epigastric distress and she denies any urinary symptoms. She has some leg swelling and no calf muscle pains. Denies skin lesions. The patient has had some anxiety attacks, but no depression. Denies any urinary symptoms and has had no depression or anxiety. HABITS The patient smoked half to one-pack per day for 50 years. Drank alcohol occasionally. 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 PHYSICAL EXAMINATION This averagely built elderly white female is alert, pale and in no acute distress. VITAL SIGNS: Blood pressure 140/80, pulse is 75, respirations 22, temperature 98.2. HEENT: Head is normocephalic. Pupils reactive. Tongue is moist. Throat is mildly injected. Ears have mild cerumen. NECK: Supple. No lymphadenopathy. Mild venous distension at 45 degrees. Trachea midline. CHEST: Equal movements with distant breath sounds, few wheezes throughout both lung azul. Prolonged expirations. HEART: The heart sounds were irregular S1 and S2. No S3 gallop. ABDOMEN: The abdomen soft and protuberant with mild epigastric tenderness. Bowel sounds are active. EXTREMITIES: No lesions. No edema. Reflexes 1+ with no gross motor deficits. NEUROLOGIC: Cranial nerves grossly intact. RECTAL: Exam is deferred. IMPRESSION 2. COPD with acute exacerbation 3. Severe emphysema and chronic bronchitis 4. Hypertension and hyperlipidemia 5. Allergic dermatitis. PLAN The patient has been placed on nebulized DuoNeb solution q.i.d. and we will continue with antibiotic therapy including Levaquin 750 mg a day. A CT scan of the chest will be obtained without contrast. A PFT will be done this week and the patient will use the incentive spirometry every two hours. A followup visit approximately three weeks. Thank you for this consultation. MD ELLIS Waters/JESSCIA /11:11 PM /7:32 AM
[2017-12-31] MEDS ORDERED: HEPARIN SODIUM - SQ 10,000 UNITS/ML VIAL SQ SCH (09:00)
[2017-12-31] MEDS ORDERED: ENOXAPARIN SODIUM 30 MG/0.3 ML SYRINGE SQ SCH (09:00)
[2017-12-31] MEDS: METOPROLOL TARTRATE 50 MG TAB PO SCH (09:11)
[2017-12-31] MEDS: ASPIRIN EC 81 MG TABEC PO SCH (09:11)
[2017-12-31] MEDS: glipiZIDE 5 MG TAB PO SCH (09:11)
[2017-12-31] MEDS: DOCUSATE SODIUM 50 MG/SENNA 8.6 MG TAB PO SCH (09:11)
[2017-12-31] MEDS: NITROGLYCERIN 0.4 MG SL 25 TABS/BTL SL PRN (09:11)
[2017-12-31] MEDS: PANTOPRAZOLE SOD 20 MG DELAYED RELEASE TAB PO SCH (09:12)
[2017-12-31] MEDS ORDERED: DOXY100C PO (13:32)
--- NOTE | 2017-12-31 13:33 | HHI.DCPOC ---
Discharge Care Plan Diagnosis: (1) COPD exacerbation (2) Pneumonia (3) Diabetes 1.5, managed as type 2 Goals to Promote Your Health * To prevent worsening of your condition and complications * To maintain your health at the optimal level Directions to Meet Your Goals Take your medications as prescribed Follow your dietary instruction Follow activity as directed Keep your appointments as scheduled Take your immunizations and boosters as scheduled If your symptoms worsen call your PCP, if no PCP go to Urgent Care Center or Emergency Room Smoking is Dangerous to Your Health. Avoid second hand smoke Call the 24-hour hour crisis hotline for domestic abuse at Navneet Gaitan DO Dec 31, 2017 13:33
--- NOTE | 2017-12-31 13:40 | HHI.DS ---
Discharge Summary Admission Date Dec 29, 2017 at 06:19 Discharge Date: Dec 31, 2017 Admitting Diagnosis Overdose (1) Diabetes 1.5, managed as type 2 ICD Code: E13.9 - Other specified diabetes mellitus without complications Status: Acute (2) Pneumonia ICD Code: J18.9 - Pneumonia, unspecified organism Status: Acute (3) COPD exacerbation ICD Code: J44.1 - Chronic obstructive pulmonary disease with (acute) exacerbation Diagnosis: Principal Status: Acute Procedures None Brief History - From Admission Seen and evaluated around 06:20am. delayed note entry. 82yF with h/o o2 dependent copd who presents with worsening SOB over the past 3 days. states this has accompanied with worsening sputum production which "looks like phegm". denies change in color or consistency in sputum. denies fever, chills. denies chest pain. no sick contacts. initially placed on o2 without improvement in her abg which showed significant hypercarbia and pco2 in the 80s. placed on BiPAP. history difficult to obtain due to tachypnea and bipap in place. ROS otherwise negative. CBC/BMP: 12/31/17 0335 12/31/17 0335 Significant Findings Laboratory Tests Test 12/29/17 00:45 12/29/17 02:35 12/29/17 03:45 12/29/17 04:30 White Blood Count 14.4 TH/MM3 (4.0-11.0) Neutrophils # (Auto) 9.3 TH/MM3 (1.8-7.7) Random Glucose 179 MG/DL (74-106) Calcium Level 8.3 MG/DL (8.5-10.1) Aspartate Amino Transf (AST/SGOT) 11 U/L (15-37) Sodium Level 129 MEQ/L (136-145) Chloride Level 90 MEQ/L (98-107) Carbon Dioxide Level 35.3 MEQ/L (21.0-32.0) Anion Gap 4 MEQ/L (5-15) Estimat Glomerular Filtration Rate 58 ML/MIN (>89) Troponin I LESS THAN 0.02 NG/ML LESS THAN 0.02 NG/ML B-Type Natriuretic Peptide 465 PG/ML (0-100) Blood Gas HCO3 35 mmol/L (22-26) 35 mmol/L (22-26) Blood Gas Base Excess 7.8 mmol/L (-2-2) 7.9 mmol/L (-2-2) Arterial Blood pH 7.25 (7.380-7.420) 7.26 (7.380-7.420) Arterial Blood Partial Pressure CO2 83 mmHg (38-42) 81 mmHg (38-42) Test 12/29/17 06:45 12/29/17 10:45 12/29/17 22:22 12/30/17 03:45 Blood Gas HCO3 35 mmol/L (22-26) 34 mmol/L (22-26) Blood Gas Base Excess 8.1 mmol/L (-2-2) 7.9 mmol/L (-2-2) Arterial Blood pH 7.27 (7.380-7.420) 7.35 (7.380-7.420) Arterial Blood Partial Pressure CO2 78 mmHg (38-42) 62 mmHg (38-42) White Blood Count 18.2 TH/MM3 (4.0-11.0) Blood Urea Nitrogen 29 MG/DL (7-18) Creatinine 1.35 MG/DL (0.50-1.00) Random Glucose 167 MG/DL (74-106) Sodium Level 128 MEQ/L (136-145) Chloride Level 88 MEQ/L (98-107) Estimat Glomerular Filtration Rate 37 ML/MIN (>89) Test 12/30/17 06:08 12/31/17 03:35 Blood Gas HCO3 32 mmol/L (22-26) Blood Gas Base Excess 7.2 mmol/L (-2-2) Arterial Blood pH 7.43 (7.380-7.420) Arterial Blood Partial Pressure CO2 49 mmHg (38-42) White Blood Count 17.1 TH/MM3 (4.0-11.0) Blood Urea Nitrogen 32 MG/DL (7-18) Random Glucose 71 MG/DL (74-106) Sodium Level 130 MEQ/L (136-145) Chloride Level 92 MEQ/L (98-107) Carbon Dioxide Level 34.1 MEQ/L (21.0-32.0) Anion Gap 4 MEQ/L (5-15) Estimat Glomerular Filtration Rate 54 ML/MIN (>89) Imaging Last Impressions Chest CT 12/30/17 1857 Signed Impressions: Service Date/Time: December 20:30 - CONCLUSION: 1. No acute findings. Atelectasis and scarring mostly at the lung bases similar to 2016. Moderate to severe coronary calcifications. Michael Valladares MD Chest X-Ray 12/30/17 0600 Signed Impressions: Service Date/Time: December 05:31 - CONCLUSION: No significant change has occurred. Jose Rios MD PE at Discharge GENERAL: Elderly female, sitting in bed, comfortable. HEENT: Normocephalic. Atraumatic. Pupils equal, round, reactive, conjugate. Mucous membranes are moist NECK: Trachea is midline. There is no JVD. CHEST: Decreased air movement, bilateral wheezing. CARDIOVASCULAR: Regular rate and rhythm. ABDOMEN: Soft, nontender, nondistended. No guarding. MUSCULOSKELETAL: Pulses 2+. No peripheral edema. NEUROLOGICAL: Follows commands. No focal deficits. Pt update on day of discharge The pt was adamant on being discharged today. She said her breathing was at her baseline. She has oxygen at home. She ambulated with physical therapy. Discussed with nursing. Hospital Course Acute hypoxic and hypercarbic respiratory failure/ COPD She was admitted to the ICU. S/p BiPAP. She has a history of COPD and reports a history of asbestosis. CXR with scarring of right midlung. CT of the chest was stable. We discontinued steroids as pt endorses an intolerance to them. We continued with nebulizer treatments and oxygen as needed. She worked with physical therapy and ambulated well. She utilized incentive spirometry. Pulmonology was consulted and the pt will follow up with pulmonology as an outpt. She was started on IV doxycycline and will complete a course of PO doxycycline. She will continue to use her home oxygen. Acute renal failure We held her home Bumex and losartan. Her creatinine improved. She will resume her home regimen but was encouraged to take her Bumex every other day. She will follow up with her PCP. DM We discontinued steroids. She was placed on an insulin sliding scale. She will continue her home glipizide. Hyponatremia Sodium level has been stable. She will follow up with her PCP. Pt Condition on Discharge: Stable Discharge Disposition: Discharge Home Discharge Time: > 30 minutes Discharge Instructions DIET: Follow Instructions for: Diabetic Diet Activities you can perform: Weight Bearing as Ludwig Follow up Referrals: PCP Follow-up - 1 Week Pulmonology - 2 Weeks with Nancy Witt MD New Medications: Doxycycline Hyclate (Doxycycline Hyclate) 100 Mg Cap 100 MG PO BID for Infection for 6 Days, #12 CAP 0 Refills Continued Medications: Aspirin DR (Aspir-Low) 81 Mg Tabdr 81 TAB PO DAILY Glipizide ER (Glipizide ER) 5 Mg Lior 5 MG PO DAILY for Blood Sugar Management, #30 TAB 0 Refills Take with breakfast or first main meal of the day. Metoprolol Tartrate (Metoprolol Tartrate) 50 Mg Tab 50 MG PO BID, #60 TAB 0 Refills Simvastatin (Simvastatin) 40 Mg Tab 40 MG PO HS for Cholesterol Management, #30 TAB 0 Refills Navneet Gaitan DO Dec 31, 2017 13:40
--- NOTE | 2017-12-31 20:23 | HHI.PR ---
Subjective Remarks She is better and wants to Leave. On O2 2 L. Has home O2 Objective Vital Signs Date Time Temp Pulse Resp B/P (MAP) Pulse Ox O2 Delivery O2 Flow Rate FiO2 12/31/17 14:00 72 12/31/17 12:00 75 12/31/17 12:00 99.1 72 26 134/62 (86) 96 12/31/17 10:00 75 12/31/17 09:35 29 12/31/17 08:00 98.9 72 35 114/56 (75) 96 12/31/17 08:00 75 12/31/17 07:00 97 Nasal Cannula 2.00 12/31/17 07:00 93 Nasal Cannula 2.00 12/31/17 06:00 75 12/31/17 04:08 98 Nasal Cannula 2.00 12/31/17 04:00 66 12/31/17 04:00 98.7 66 28 134/60 (84) 96 12/31/17 02:00 70 12/31/17 00:11 96 Nasal Cannula 2.00 12/31/17 00:00 98.4 74 30 149/66 (93) 96 12/31/17 00:00 74 12/30/17 22:00 74 12/30/17 20:50 94 Nasal Cannula 2.00 I/O 12/30/17 12/30/17 12/30/17 12/31/17 12/31/17 12/31/17 07:00 15:00 23:00 07:00 15:00 23:00 Intake Total 660 ml Output Total 600 ml 400 ml Balance -600 ml 260 ml Intake Oral 660 ml Output Urine Total 600 ml 400 ml # Voids 1 2 # Bowel Movements 1 1 Result Diagram: 12/31/17 0335 12/31/17 0335 Objective Remarks This averagely built elderly white female is alert, pale and in no acute distress. HEENT: Head is normocephalic. Pupils reactive. Tongue is moist. Throat is mildly injected. Ears have mild cerumen. NECK: Supple. No lymphadenopathy. Mild venous distension at 45 degrees. Trachea midline. CHEST: Equal movements with distant breath sounds, few wheezes over both lung azul. Prolonged expirations. HEART: The heart sounds were irregular S1 and S2. No S3 gallop. ABDOMEN: The abdomen soft and protuberant with no tenderness. Bowel sounds are active. EXTREMITIES: No lesions. No edema. Reflexes 1+ with no gross motor deficits. NEUROLOGIC: Cranial nerves grossly intact. RECTAL: Exam is deferred. Assessment and Plan Assessment and Plan IMPRESSION 2. COPD with acute exacerbation 3. Severe emphysema and chronic bronchitis 4. Hypertension and hyperlipidemia 5. Allergic dermatitis. PLan : 1. O2 2 L. 2. Switch to PO Levaquin for 5 days. 3. D/C Solumedrol a nd add Prednisone 20 mg BID and Taper 4. Duonebs qid. 5. Adv to stop smoking. 6. Symbicort 160/4.5 Mcg , 2 puffs bid. 7. OK to go home for OP F/U in 2 weeks Nnacy Witt MD Dec 31, 2017 20:23
[2018-01-01] MEDS ORDERED: GABA100C4 PO (16:38)
[2018-01-01] MEDS ORDERED: NITR0.4S SL (16:38)
[2018-01-01] MEDS ORDERED: IPRA0.02 NEB (16:38)
[2018-01-01] MEDS ORDERED: VENTAER INH (16:38)
[2018-01-01] MEDS ORDERED: BUME2TAB PO (16:38)
[2018-01-01] MEDS ORDERED: ALBU0.08 NEB (16:38)
== END 2017-12-31 15:36 | disposition home or self-care (01) | DRG 189 ==
LOC: NEPC 00:25 → NEDA 06:19 → N03A 08:17
PROVIDERS: ADMIT Internal Medicine Critical Care Medicine; ATTEND Hospitalist
PROC: 5A09357 Assistance with Respiratory Ventilation, Less than 24 Consecutive Hours, Continuous Positive Airway Pressure (ICD-10-PCS; principal; 2017-12-29)
DX: J96.01 Acute respiratory failure with hypoxia (principal); N17.9 Acute kidney failure, unspecified; J18.9 Pneumonia, unspecified organism; I11.0 Hypertensive heart disease with heart failure; J44.0 Chronic obstructive pulmonary disease with (acute) lower respiratory infection; I50.9 Heart failure, unspecified; Z99.81 Dependence on supplemental oxygen; J44.1 Chronic obstructive pulmonary disease with (acute) exacerbation; E87.1 Hypo-osmolality and hyponatremia; J96.02 Acute respiratory failure with hypercapnia; E11.9 Type 2 diabetes mellitus without complications; I25.2 Old myocardial infarction; L23.9 Allergic contact dermatitis, unspecified cause; F17.210 Nicotine dependence, cigarettes, uncomplicated; R07.9 Chest pain, unspecified; Z77.090 Contact with and (suspected) exposure to asbestos; Z95.1 Presence of aortocoronary bypass graft; Z79.84 Long term (current) use of oral hypoglycemic drugs; Z88.5 Allergy status to narcotic agent; Z88.0 Allergy status to penicillin
CPT/HCPCS: 36600; 71045; 71250; 80048; 80053; 82550; 82805; 82948; 83735; 83880; 84484; 85025; 85027; 85610; 85730; 93005; 94002; 94003; 94060; 94150; 94640; 94664; 94667; 94668; 96374; J1644; J1650; J1940; J2920; J2930

== ENCOUNTER 2018-01-01 15:28 | Inpatient (IN) | payer OTHER, MEDICARE ==
[~2018-01-01] VITALS: Ht 127 cm; Wt 71.4 kg
[~2018-01-01 15:28] MED LIST changes: +ASPI81TA19 PO; -ASPI81TA82 PO; +DOXY100C PO; -FURO20 PO; +GLIP1TAB49 PO; -GLIP5 PO; -MINO100T PO; -OMEP20CA5 PO; -PRED5TAB PO; -SIMV40 PO; +SIMV40TA PO
[2018-01-01 15:33] VITALS: BP 169/79; PULSE 82; RESP 25; TEMP 97.8; O2SAT 96
[2018-01-01 15:45] VITALS: RESP 24; O2SAT 96
[2018-01-01] MEDS: RESP: ALBUTEROL 2.5 MG/IPRATROPIUM 0.5 MG NEB (SCH) INH ×2 (15:45→15:53)
[2018-01-01] MEDS: SODIUM CHLORIDE 0.9% FLUSH 10 ML FLUSH IVF PRN ×2 (15:46→17:05)
[2018-01-01 15:53] LABS: AUTOMATED NEUTROPHIL # 12.8 TH/MM3 (1.8-7.7); BASOPHIL # 0.1 TH/MM3 (0-0.2); BASOPHIL % 0.7 % (0.0-2.0); EOSINOPHIL # 0.3 TH/MM3 (0-0.4); EOSINOPHIL % 1.7 % (0.0-4.0); HEMATOCRIT 44.4 % (35.0-46.0); HEMOGLOBIN 14.8 GM/DL (11.6-15.3); LYMPH % 18.3 % (9.0-44.0); LYMPHOCYTE # 3.3 TH/MM3 (1.0-4.8); MEAN CELL VOLUME 90.7 FL (80.0-100.0); MEAN CORPUSCULAR HEMOGLOBIN 30.1 PG (27.0-34.0); MEAN CORPUSCULAR HGB CONC 33.2 % (32.0-36.0); MEAN PLATELET VOLUME 7.2 FL (7.0-11.0); MONOCYTE # 1.4 TH/MM3 (0-0.9); NEUT % 71.3 % (16.0-70.0); PLATELET COUNT 305 TH/MM3 (150-450); WHITE BLOOD COUNT 17.9 TH/MM3 (4.0-11.0)
[2018-01-01 16:05] LABS: PROTHROMBIN TIME - PATIENT 10.3 SEC (9.8-11.6)
[2018-01-01 16:19] LABS: BICARBONATE 33.3 MEQ/L (21.0-32.0); BLOOD UREA NITROGEN 21 MG/DL (7-18); CALCIUM 8.8 MG/DL (8.5-10.1); CHLORIDE 95 MEQ/L (98-107); CREATININE 0.91 MG/DL (0.50-1.00); GLOMERULAR FILTRATION RATE 59 ML/MIN (>89); GLUCOSE,RANDOM 91 MG/DL (74-106); MAGNESIUM 2.3 MG/DL (1.5-2.5); SODIUM (NA) 131 MEQ/L (136-145); TROPONIN I 0.21 NG/ML (0.02-0.05)
--- NOTE | 2018-01-01 16:19 | RADRPT ---
EXAM DATE/TIME: 01/01/2018 15:59 [facility] COMPARISON: CT THORAX W/O CONTRAST, December 30, 2017, 20:30. CHEST SINGLE AP, December 30, 2017, 5:31. INDICATIONS : Short of breath. MEDICAL HISTORY : Hypercholesterolemia. Hypertension Myocardial infarction. Cardiovascular disease. Chronic obstruc tive pulmonary disease. Diabetes mellitus type 2. SURGICAL HISTORY : CABG. Stomach surgery. ENCOUNTER: Initial ACUITY: 1 day PAIN SCORE: 0/10 LOCATION: Bilateral chest FINDINGS: Portable AP view of the chest demonstrates cardiac silhouette size at the upper limits for normal wit h calcification of the aorta. No pleural effusion, airspace consolidation, or pneumothorax is appreci ated. There is stable linear scar in the left midlung zone. The bones and soft tissues demonstrate no acute finding. CONCLUSION: Stable chest x-ray. No acute finding is appreciated. Omer Hurd MD on January 01, 2018 at 16:15 Board Certified Radiologist. This report was verified electronically.
[2018-01-01 16:32] LABS: BANDS 1 % (0-6); LYMPHOCYTES 26 % (9-44); METAMYELOCYTES 1 % (0-1); MONOCYTES 3 % (0-8); NEUTROPHIL # MANUAL DIFF 12.7 TH/MM3 (1.8-7.7); POLYS (SEG NEUTROPHILS) 69 % (16-70)
[2018-01-01] MEDS ORDERED: BUME2TAB PO (16:38)
[2018-01-01] MEDS ORDERED: VENTAER INH (16:38)
[2018-01-01] MEDS ORDERED: GABA100C4 PO (16:38)
[2018-01-01] MEDS ORDERED: IPRA0.02 NEB (16:38)
[2018-01-01] MEDS ORDERED: ALBU0.08 NEB (16:38)
[2018-01-01] MEDS ORDERED: NITR0.4S SL (16:38)
--- NOTE | 2018-01-01 16:40 | PD ---
HPI Chief Complaint: Respiratory Symptoms Time Seen by Provider: 15:36 Travel History International Travel<30 days: No Contact w/Intl Traveler<30days: No Traveled to known affect area: No History of Present Illness HPI 82-year-old female arrives by EMS. She was found short of breath at home. She called EMS from home due to shortness of breath. She was seen earlier today by EMS and she refused transport at that time. Reportedly she has COPD and CHF and has been using inhalers every 4 hours and reports of dyspnea. Occasional cough noted. She reports orthopnea and dyspnea on exertion. Patient is reported to have CHF and she reports intermittent compliance with a diuretic however she cannot remember the name. Pt was discharged from here yesterday following admission of four days for respiratory distress. PFSH Past Medical History Hx Anticoagulant Therapy: Yes (ASA) Asthma: Yes Cardiovascular Problems: Yes Congestive Heart Failure: Yes COPD: Yes Diabetes: Yes Patient Takes Glucophage: No Diminished Hearing: No Genitourinary: No Hypertension: Yes Musculoskeletal: No Neurologic: No Psychiatric: No Respiratory: Yes Immunizations Current: Yes Myocardial Infarction: Yes Tetanus Vaccination: > 5 Years Influenza Vaccination: Yes ?: Not Menopausal: Yes : 5 Para: 5 Past Surgical History Abdominal Surgery: Yes (tumor removed from stomach benign) Cardiac Surgery: Yes (cabg) Pacemaker: No Other Surgery: Yes Social History Alcohol Use: No Tobacco Use: Yes (5 CIGARRETTES PER DAY ) Substance Use: No Allergies-Medications (Allergen,Severity, Reaction): Coded Allergies: penicillin G (Verified Allergy, Mild, RASH, 01/01/18) morphine (Verified Adverse Reaction, Severe, RASH, 01/01/18) codeine (Verified Adverse Reaction, Intermediate, NAUSEA, 01/01/18) Reported Meds & Prescriptions Reported Meds & Active Scripts Active Doxycycline Hyclate 100 Mg Cap 100 Mg PO BID 6 Days Reported Gabapentin 100 Mg Cap 100 Mg PO DAILY Ventolin Hfa 18 GM Inh (Albuterol Sulfate) 90 Mcg/Act Aer 2 Puff INH Q4H PRN Nitrostat SL (Nitroglycerin) 0.4 Mg Subl 0.4 Mg SL DIRECTED PRN 1 tablet under the tongue as needed for chest pain. Repeat every 5 minutes for a total of 3 DOSES or call 911 if NO relief. Albuterol Neb (Albuterol Sulfate) 2.5 Mg/3 Ml Neb 2.5 Mg NEB EVERY 3-4 HOURS PRN Ipratropium Neb (Ipratropium [place]) 0.5 Mg/2.5 Ml Amp 0.5 Mg NEB 3-4 TIMES A DAY PRN Bumetanide 2 Mg Tab 1 Mg PO DAILY Simvastatin 40 Mg Tab 40 Mg PO HS Metoprolol Tartrate 50 Mg Tab 50 Mg PO BID Aspir-Low (Aspirin) 81 Mg Tabdr 81 Tab PO DAILY Glipizide ER (Glipizide) 5 Mg Lior 5 Mg PO DAILY Take with breakfast or first main meal of the day. Review of Systems Except as stated in HPI: all other systems reviewed are Neg General / Constitutional: No: Fever Physical Exam Narrative GENERAL: 82-year-old female pleasant well-nourished well-developed Vital Signs Date Time Temp Pulse Resp B/P (MAP) Pulse Ox O2 Delivery O2 Flow Rate FiO2 01/01/18 15:45 96 Nasal Cannula 2.50 01/01/18 15:45 96 Nasal Cannula 2.00 01/01/18 15:45 24 96 Nasal Cannula 2.00 01/01/18 15:35 86 25 96 Nasal Cannula 2.00 01/01/18 15:33 97.8 82 25 169/79 (109) 96 SKIN: Warm and dry. HEAD: Atraumatic. Normocephalic. EYES: Pupils equal and round. No scleral icterus. No injection or drainage. ENT: No nasal bleeding or discharge. Mucous membranes pink and moist. NECK: Trachea midline. No JVD. CARDIOVASCULAR: Regular rhythm. Rate about 85. RESPIRATORY: Wheezing is present bilaterally. Minimal tachypnea. GASTROINTESTINAL: Abdomen soft, non-tender, nondistended. Hepatic and splenic margins not palpable. MUSCULOSKELETAL: Extremities without clubbing, cyanosis, or edema. No obvious deformities. NEUROLOGICAL: Awake and alert. No obvious cranial nerve deficits. Motor grossly within normal limits. Five out of 5 muscle strength in the arms and legs. Normal speech. PSYCHIATRIC: Appropriate mood and affect; insight and judgment normal. Data Data Last Documented VS Vital Signs Date Time Temp Pulse Resp B/P (MAP) Pulse Ox O2 Delivery O2 Flow Rate FiO2 01/01/18 17:06 97.9 80 20 141/67 (91) 97 Nasal Cannula 2.00 Orders Orders Complete Blood Count With Diff (01/01/18 15:37) Basic Metabolic Panel (Bmp) (2/17/18 15:37) B-Type Natriuretic Peptide (01/01/18 15:37) Act Partial Throm Time (Ptt) (01/01/18 15:37) Prothrombin Time / Inr (Pt) (01/01/18 15:37) Magnesium (Mg) (01/01/18 15:37) Ckmb (Isoenzyme) Profile (01/01/18 15:37) Troponin I (01/01/18 15:37) Iv Access Insert/Monitor (01/01/18 15:37) Electrocardiogram (01/01/18 15:37) Ecg Monitoring (01/01/18 15:37) Oximetry (01/01/18 15:37) Oxygen Administration (01/01/18 15:37) Chest, Single Ap (01/01/18 15:37) Sodium Chloride 0.9% Flush (Ns Flush) (01/01/18 15:45) Albuterol-Ipratropium Neb (Duoneb Neb) (01/01/18 15:45) CKMB (01/01/18 15:20) CKMB% (01/01/18 15:20) Furosemide Inj (Lasix Inj) (01/01/18 17:00) Admit Order (Ed Use Only) (01/01/18 17:03) Labs Laboratory Tests Test 01/01/18 15:20 White Blood Count 17.9 TH/MM3 Red Blood Count 4.90 MIL/MM3 Hemoglobin 14.8 GM/DL Hematocrit 44.4 % Mean Corpuscular Volume 90.7 FL Mean Corpuscular Hemoglobin 30.1 PG Mean Corpuscular Hemoglobin Concent 33.2 % Red Cell Distribution Width 14.0 % Platelet Count 305 TH/MM3 Mean Platelet Volume 7.2 FL Neutrophils (%) (Auto) 71.3 % Lymphocytes (%) (Auto) 18.3 % Monocytes (%) (Auto) 8.0 % Eosinophils (%) (Auto) 1.7 % Basophils (%) (Auto) 0.7 % Neutrophils # (Auto) 12.8 TH/MM3 Lymphocytes # (Auto) 3.3 TH/MM3 Monocytes # (Auto) 1.4 TH/MM3 Eosinophils # (Auto) 0.3 TH/MM3 Basophils # (Auto) 0.1 TH/MM3 CBC Comment AUTO DIFF Differential Total Cells Counted 100 Neutrophils % (Manual) 69 % Band Neutrophils % 1 % Lymphocytes % 26 % Monocytes % 3 % Neutrophils # (Manual) 12.7 TH/MM3 Metamyelocytes 1 % Differential Comment FINAL DIFF MANUAL Prothrombin Time 10.3 SEC Prothromb Time International Ratio 1.0 RATIO Activated Partial Thromboplast Time 25.5 SEC Blood Urea Nitrogen 21 MG/DL Creatinine 0.91 MG/DL Random Glucose 91 MG/DL Calcium Level 8.8 MG/DL Magnesium Level 2.3 MG/DL Sodium Level 131 MEQ/L Potassium Level 5.0 MEQ/L Chloride Level 95 MEQ/L Carbon Dioxide Level 33.3 MEQ/L Anion Gap 3 MEQ/L Estimat Glomerular Filtration Rate 59 ML/MIN Total Creatine Kinase 126 U/L Creatine Kinase MB 6.9 NG/ML Troponin I 0.21 NG/ML B-Type Natriuretic Peptide 415 PG/ML MDM Medical Decision Making Medical Screen Exam Complete: Yes Emergency Medical Condition: Yes Medical Record Reviewed: Yes Differential Diagnosis COPD exacerbation, CHF exacerbation, pneumonia, flu Narrative Course CBC & BMP Diagram 01/01/18 15:20 Calcium Level 8.8, Magnesium Level 2.3 CXR: NACPD Moderate dyspnea after Duonebs Solumedrol given Admission for further monitoring and treatments d/w Dr Gaitan Diagnosis Primary Impression: COPD exacerbation Additional Impression: CHF exacerbation Qualified Codes: I50.9 - Heart failure, unspecified Admitting Information Admitting Physician Requests: Admit Rodríguez Clay MD Jan 01, 2018 16:40
[2018-01-01] MEDS ORDERED: FUROSEMIDE 40 MG/4 ML VIAL IV PUSH ONE (17:00)
[2018-01-01 17:06] VITALS: BP 141/67; PULSE 80; RESP 20; TEMP 97.9; O2SAT 97
[2018-01-01] MEDS ORDERED: ACETAMINOPHEN 325 MG TAB PO PRN ×2 (18:00)
[2018-01-01] MEDS ORDERED: SODIUM CHLORIDE 0.9% FLUSH 10 ML FLUSH IV FLUSH PRN (18:00)
[2018-01-01] MEDS ORDERED: NALOXONE HCL 0.4 MG/ML AMP IV PUSH PRN (18:00)
--- NOTE | 2018-01-01 18:26 | HHI.HP ---
HPI Service [facility] Primary Care Physician Kailee Sage M.D. Admission Diagnosis Respiratory Distress; Hypoxia; CHF; COPD Diagnoses: Chief Complaint: Shortness of breath Travel History International Travel<30 Days: No Contact w/Intl Traveler <30 Da: No Traveled to Known Affected Are: No History of Present Illness The patient is an 82-year-old female with a past medical history of COPD and asthma and was recently discharged from the hospital on 12/31/17 who is presenting to the hospital with shortness of breath. The patient stated that this morning her breathing got worse. She had a friend come over and the patient states that her friend made her more nervous and her breathing got worse. The patient states that she tried taking her breathing treatments but they did not work. She called for EMS and improved with treatment. EMS wanted to bring her to the hospital but the patient declined. The patient had chest pain, which she chronically has, and that resolved with administration of nitroglycerin. Her breathing continued to be labored so she called for the ambulance again a couple of hours later. The patient states that her blood sugar was low in the 70s this morning. The patient currently denies any chest pain. She says she did take a few puffs of his cigarette earlier today. She says that she does have a heart doctor she follows up with. Review of Systems Except as stated in HPI: all other systems reviewed are Neg Past Family Social History Past Medical History Asthma Diastolic CHF COPD, o2 dependent Diabetes HTN GA Past Surgical History CABG Stomach tumor removal Bilateral leg surgery Allergies: Coded Allergies: penicillin G (Verified Allergy, Mild, RASH, 01/01/18) morphine (Verified Adverse Reaction, Severe, RASH, 01/01/18) codeine (Verified Adverse Reaction, Intermediate, NAUSEA, 01/01/18) Active Ordered Medications Current Medications Medications (Trade) Dose Ordered Sig/Linden Route Start Time Stop Time Status Last Admin (NS Flush) 2 ml UNSCH PRN IV FLUSH 01/01/18 18:00 (NS Flush) 2 ml BID IV FLUSH 01/01/18 21:00 (Tylenol) 650 mg Q4H PRN PO 01/01/18 18:00 (Heparin Inj) 5,000 units Q8HR SQ 01/01/18 22:00 (Tylenol) 650 mg Q6H PRN PO 01/01/18 18:00 (Narcan Inj) 0.4 mg UNSCH PRN IV PUSH 01/01/18 18:00 (Luz-Colace) 1 tab BID PO 01/01/18 21:00 (Ecotrin Ec) 6,561 mg DAILY PO 01/02/18 09:00 UNV (Neurontin) 100 mg DAILY PO 01/02/18 09:00 UNV (Lopressor) 50 mg BID PO 01/01/18 21:00 UNV Non-Formulary Medication 40 mg HS PO 01/01/18 21:00 UNV (NovoLOG SUPPLEMENTAL SCALE) 1 ACHS SLIDING SCALE SQ 01/01/18 21:00 UNV Family History CAD Stomach cancer Social History The pt still smokes about five cigarettes daily. She does not drink alcohol. Physical Exam Vital Signs Vital Signs Date Time Temp Pulse Resp B/P (MAP) Pulse Ox O2 Delivery O2 Flow Rate FiO2 01/01/18 17:06 97.9 80 20 141/67 (91) 97 Nasal Cannula 2.00 01/01/18 15:45 96 Nasal Cannula 2.50 01/01/18 15:45 96 Nasal Cannula 2.00 01/01/18 15:45 24 96 Nasal Cannula 2.00 01/01/18 15:35 86 25 96 Nasal Cannula 2.00 01/01/18 15:33 97.8 82 25 169/79 (109) 96 Physical Exam GENERAL: Elderly female in some respiratory distress. HEENT: Normocephalic. Atraumatic. Pupils equal, round, reactive, conjugate. Mucous membranes are moist NECK: Trachea is midline. There is no JVD. CHEST: Decreased air movement, wheezing. CARDIOVASCULAR: Regular rate and rhythm. Grade 1 systolic murmur appreciated. ABDOMEN: Soft, nontender, nondistended. No guarding. MUSCULOSKELETAL: No peripheral edema, no deformities. NEUROLOGICAL: Follows commands. No focal deficits. PSYCH: Mood and affect appropriate. Laboratory Laboratory Tests Test 01/01/18 15:20 White Blood Count 17.9 Red Blood Count 4.90 Hemoglobin 14.8 Hematocrit 44.4 Mean Corpuscular Volume 90.7 Mean Corpuscular Hemoglobin 30.1 Mean Corpuscular Hemoglobin Concent 33.2 Red Cell Distribution Width 14.0 Platelet Count 305 Mean Platelet Volume 7.2 Neutrophils (%) (Auto) 71.3 Lymphocytes (%) (Auto) 18.3 Monocytes (%) (Auto) 8.0 Eosinophils (%) (Auto) 1.7 Basophils (%) (Auto) 0.7 Neutrophils # (Auto) 12.8 Lymphocytes # (Auto) 3.3 Monocytes # (Auto) 1.4 Eosinophils # (Auto) 0.3 Basophils # (Auto) 0.1 CBC Comment AUTO DIFF Differential Total Cells Counted 100 Neutrophils % (Manual) 69 Band Neutrophils % 1 Lymphocytes % 26 Monocytes % 3 Neutrophils # (Manual) 12.7 Metamyelocytes 1 Differential Comment FINAL DIFF MANUAL Prothrombin Time 10.3 Prothromb Time International Ratio 1.0 Activated Partial Thromboplast Time 25.5 Blood Urea Nitrogen 21 Creatinine 0.91 Random Glucose 91 Calcium Level 8.8 Magnesium Level 2.3 Sodium Level 131 Potassium Level 5.0 Chloride Level 95 Carbon Dioxide Level 33.3 Anion Gap 3 Estimat Glomerular Filtration Rate 59 Total Creatine Kinase 126 Creatine Kinase MB 6.9 Troponin I 0.21 B-Type Natriuretic Peptide 415 Result Diagram: 01/01/18 1520 01/01/18 1520 Caprini VTE Risk Assessment Caprini VTE Risk Assessment: Mod/High Risk (score >= 2) Caprini Risk Assessment Model Point Value = 1 Point Value = 2 Point Value = 3 Point Value = 5 Age 41-60 Minor surgery BMI > 25 kg/m2 Swollen legs Varicose veins or History of unexplained or recurrent spontaneous Oral contraceptives or hormone replacement Sepsis (< 1 month) Serious lung disease, including pneumonia (< 1 month) Abnormal pulmonary function Acute myocardial infarction Congestive heart failure (< 1 month) History of inflammatory bowel disease Medical patient at bed rest Age 61-74 Arthroscopic surgery Major open surgery (> 45 min) Laparoscopic surgery (> 45 min) Malignancy Confined to bed (> 72 hours) Immobilizing plaster cast Central venous access Age >= 75 History of VTE Family history of VTE Factor V Leiden Prothrombin [id number] Lupus anticoagulant Anticardiolipin antibodies Elevated serum homocysteine Heparin-induced thrombocytopenia Other congenital or acquired thrombophilia Stroke (< 1 month) Elective arthroplasty Hip, pelvis, or leg fracture Acute spinal cord injury (< 1 month) Prophylaxis Regimen Total Risk Factor Score Risk Level Prophylaxis Regimen 0-1 Low Early ambulation 2 Moderate Order ONE of the following: *Sequential Compression Device (SCD) *Heparin 5000 units SQ BID 3-4 Higher Order ONE of the following medications: *Heparin 5000 units SQ TID *Enoxaparin/Lovenox 40 mg SQ daily (WT < 150 kg, CrCl > 30 mL/min) *Enoxaparin/Lovenox 30 mg SQ daily (WT < 150 kg, CrCl > 10-29 mL/min) *Enoxaparin/Lovenox 30 mg SQ BID (WT < 150 kg, CrCl > 30 mL/min) AND/OR *Sequential Compression Device (SCD) 5 or more Highest Order ONE of the following medications: *Heparin 5000 units SQ TID (Preferred with Epidurals) *Enoxaparin/Lovenox 40 mg SQ daily (WT < 150 kg, CrCl > 30 mL/min) *Enoxaparin/Lovenox 30 mg SQ daily (WT < 150 kg, CrCl > 10-29 mL/min) *Enoxaparin/Lovenox 30 mg SQ BID (WT < 150 kg, CrCl > 30 mL/min) AND *Sequential Compression Device (SCD) Assessment and Plan Assessment and Plan Acute hypoxic and hypercarbic respiratory failure/ COPD exacerbation The pt has a history of COPD and reports a history of asbestosis. She was just admitted to the hospital for respiratory failure and discharged the day prior to admission. CXR stable. She continues to smoke. - no steroids as the pt endorses intolerance to them. - standing and as needed nebs. - BiPAP if needed. - check an ABG. - PT/OT. - IS. - IV doxycycline. - smoking cessation instruction. - sputum culture and gram stain. NSTEMI Trop elevated at 0.21. The pt has chronic chest pain and takes NTG regularly. - telemetry. - trend trops and EKGs. - the pt's methods engineer has been consulted. DM On glipizide as an outpt. - hold glipizide. - gabapentin for neuropathy. - ISS. Hyponatremia Seems chronic. - follow BMP. Leukocytosis The pt received steroids on her previous hospitalization. - follow CBC. - check a UA. PPx: Heparin Code Status Full Discussed Condition With Pt, Dr. Clay Physician Certification 2 Midnight Certification Type: Admission for Inpatient Services Order for Inpatient Services The services are ordered in accordance with Medicare regulations or non- Medicare payer requirements, as applicable. In the case of services not specified as inpatient-only, they are appropriately provided as inpatient services in accordance with the 2-midnight benchmark. Estimated LOS (days): 2 days is the estimated time the patient will need to remain in the hospital, assuming treatment plan goals are met and no additional complications. Post-Hospital Plan: Not yet determined Navneet Gaitan DO Jan 01, 2018 18:26
[2018-01-01 19:49] VITALS: O2SAT 90
[2018-01-01] MEDS: RESP: ALBUTEROL 2.5 MG/IPRATROPIUM 0.5 MG NEB (SCH) NEB (19:49)
[2018-01-01 20:00] VITALS: BP 154/93; PULSE 76; PULSE 88; RESP 18; TEMP 98.1; O2SAT 92
[2018-01-01] MEDS: DOCUSATE SODIUM 50 MG/SENNA 8.6 MG TAB PO SCH (21:00)
[2018-01-01] MEDS: INSULIN ASPART SUPPLEMENTAL SCALE SQ SCH (21:00)
[2018-01-01] MEDS: METOPROLOL TARTRATE 50 MG TAB PO SCH (22:03)
[2018-01-01] MEDS: SODIUM CHLORIDE 0.9% FLUSH 10 ML FLUSH IV FLUSH SCH (22:03)
[2018-01-01] MEDS: PRAVASTATIN SOD 80 MG TAB PO SCH (22:03)
[2018-01-01] MEDS: HEPARIN SODIUM - SQ 10,000 UNITS/ML VIAL SQ SCH (22:04)
[2018-01-01] MEDS: DOXYCYCLINE INJ 100 MG in SODIUM CHLORIDE 0.9% INJ 100 ML IV SCH (22:04)
[2018-01-01] MEDS: RESP: ALBUTEROL 2.5 MG/IPRATROPIUM 0.5 MG NEB (PRN) NEB (22:18)
[2018-01-02] VITALS (14 sets, daily range): BP systolic 108–159; BP diastolic 53–76; PULSE 64–89; RESP 17–22; TEMP 97.4–98.8; O2SAT 93–97
[2018-01-02] MEDS: RESP: ALBUTEROL 2.5 MG/IPRATROPIUM 0.5 MG NEB (PRN) NEB ×3 (01:38→17:19)
[2018-01-02 04:49] LABS: AUTOMATED NEUTROPHIL # 7.1 TH/MM3 (1.8-7.7); BASOPHIL # 0.1 TH/MM3 (0-0.2); BASOPHIL % 0.6 % (0.0-2.0); EOSINOPHIL # 0.3 TH/MM3 (0-0.4); HEMATOCRIT 39.4 % (35.0-46.0); LYMPHOCYTE # 2.2 TH/MM3 (1.0-4.8); MEAN CELL VOLUME 90.8 FL (80.0-100.0); MEAN CORPUSCULAR HEMOGLOBIN 32.2 PG (27.0-34.0); MEAN CORPUSCULAR HGB CONC 35.5 % (32.0-36.0); MEAN PLATELET VOLUME 7.9 FL (7.0-11.0); NEUT % 66.4 % (16.0-70.0); PLATELET COUNT 226 TH/MM3 (150-450); RED BLOOD COUNT 4.34 MIL/MM3 (4.00-5.30); RED CELL DISTRIBUTION WIDTH 13.9 % (11.6-17.2); WHITE BLOOD COUNT 10.7 TH/MM3 (4.0-11.0)
[2018-01-02 05:02] LABS: ALBUMIN 2.8 GM/DL (3.4-5.0); ALT (GPT) 22 U/L (10-53); AST (GOT) 14 U/L (15-37); BICARBONATE 35.1 MEQ/L (21.0-32.0); CALCIUM 8.5 MG/DL (8.5-10.1); CHLORIDE 97 MEQ/L (98-107); GLOMERULAR FILTRATION RATE 60 ML/MIN (>89); GLUCOSE,RANDOM 110 MG/DL (74-106); SODIUM (NA) 136 MEQ/L (136-145)
[2018-01-02 05:03] LABS: BLOOD UREA NITROGEN 20 MG/DL (7-18)
[2018-01-02 05:05] LABS: ALKALINE PHOSPHATASE 85 U/L (45-117); TOTAL BILIRUBIN ADULT 0.3 MG/DL (0.2-1.0); TROPONIN I 0.24 NG/ML (0.02-0.05)
[2018-01-02] MEDS: HEPARIN SODIUM - SQ 10,000 UNITS/ML VIAL SQ SCH ×3 (05:19→22:16)
[2018-01-02] MEDS: INSULIN ASPART SUPPLEMENTAL SCALE SQ SCH ×4 (08:00→20:02)
[2018-01-02] MEDS: RESP: ALBUTEROL 2.5 MG/IPRATROPIUM 0.5 MG NEB (SCH) NEB ×3 (08:55→21:02)
[2018-01-02] MEDS ORDERED: ASPIRIN EC 81 MG TABEC PO SCH (09:00)
[2018-01-02] MEDS: DOCUSATE SODIUM 50 MG/SENNA 8.6 MG TAB PO SCH ×2 (09:00→20:00)
[2018-01-02] MEDS: DOXYCYCLINE INJ 100 MG in SODIUM CHLORIDE 0.9% INJ 100 ML IV SCH ×2 (10:00→19:59)
[2018-01-02] MEDS: METOPROLOL TARTRATE 50 MG TAB PO SCH ×2 (10:01→19:59)
[2018-01-02] MEDS: SODIUM CHLORIDE 0.9% FLUSH 10 ML FLUSH IV FLUSH SCH ×2 (10:01→20:00)
[2018-01-02] MEDS: GABAPENTIN 100 MG CAP PO SCH (10:02)
--- NOTE | 2018-01-02 11:10 | HHI.PR ---
Subjective Remarks Patient reports she is feeling slightly better. Chronic chest pain is unchanged. Objective Vitals Vital Signs Date Time Temp Pulse Resp B/P (MAP) Pulse Ox O2 Delivery O2 Flow Rate FiO2 01/02/18 08:58 94 Nasal Cannula 3.00 01/02/18 08:00 97.6 71 18 130/67 (88) 97 01/02/18 07:57 66 01/02/18 04:16 67 01/02/18 04:00 3.00 01/02/18 04:00 97.6 64 17 119/54 (75) 95 01/02/18 01:43 93 Nasal Cannula 3.00 01/02/18 01:38 3.00 01/02/18 00:00 Nasal Cannula 2.00 01/02/18 00:00 97.4 80 17 159/65 (96) 93 01/02/18 00:00 72 01/01/18 22:00 Nasal Cannula 2.00 01/01/18 22:00 Nasal Cannula 2.00 01/01/18 20:00 98.1 76 18 154/93 (113) 92 01/01/18 20:00 88 01/01/18 19:49 90 Nasal Cannula 2.00 01/01/18 18:40 Nasal Cannula 2.00 01/01/18 17:06 97.9 80 20 141/67 (91) 97 Nasal Cannula 2.00 01/01/18 15:45 96 Nasal Cannula 2.50 01/01/18 15:45 96 Nasal Cannula 2.00 01/01/18 15:45 24 96 Nasal Cannula 2.00 01/01/18 15:35 86 25 96 Nasal Cannula 2.00 01/01/18 15:33 97.8 82 25 169/79 (109) 96 I/O 01/01/18 01/01/18 01/01/18 01/02/18 01/02/18 01/02/18 07:00 15:00 23:00 07:00 15:00 23:00 Intake Total 600 ml Output Total 800 ml 1000 ml Balance -800 ml -400 ml Intake Oral 500 ml IV Total 100 ml Output Urine Total 800 ml 1000 ml # Voids 1 2 # Bowel Movements 0 Result Diagram: 01/02/18 0416 01/02/18415 Objective Remarks GENERAL: Elderly female, appear chronically ill CARDIOVASCULAR: Normal rate and regular rhythm without murmurs, gallops, or rubs. RESPIRATORY: Diffuse rhonchi throughout and faint expiratory wheezing. GASTROINTESTINAL: Abdomen soft, non-tender, non-distended. Normal active bowel sounds MUSCULOSKELETAL: Extremities without cyanosis, or edema. NEURO: Alert & Oriented x4 to person, place, time, situation. Moves all ext x4 PSYCH: Appropriate mood and affect. A/P Assessment and Plan 82-year-old female with: Acute hypoxic and hypercarbic respiratory failure/ COPD exacerbation The pt has a history of COPD and reports a history of asbestosis. She was just admitted to the hospital for respiratory failure and discharged the day prior to admission. CXR stable. She continues to smoke. - no steroids as the pt endorses intolerance to them. - standing and as needed nebs. - BiPAP if needed. - PT/OT. - IS. - IV doxycycline. -Patient was strongly counseled to stop smoking - sputum culture and gram stain. NSTEMI Trop elevated at 0.21. The pt has chronic chest pain and takes NTG regularly. Cardiac enzymes seems to plateau. - telemetry. - the pt's velvet cutter has been consulted. - Continue metoprolol, aspirin, and nitroglycerin as needed. DM On glipizide as an outpt. - hold glipizide. - gabapentin for neuropathy. - ISS. Leukocytosis Resolved. PPx: Heparin Sebastian Woodruff MD Jan 02, 2018 11:10
[2018-01-02] MEDS ORDERED: CLOPIDOGREL 300 MG TAB PO ONE (11:15)
--- NOTE | 2018-01-02 11:40 | MB ---
cc: DELFINA ESCALONA M.D. DATE OF CONSULTATION: 01/02/2018. REASON FOR CONSULTATION: Evaluation of elevated troponin. HISTORY OF PRESENT ILLNESS: Maritza Richardson is an 82-year-old female followed by my colleague, Dr. Ruiz, last seen in the office June 17, 2017. The patient has known severe chronic lung disease on chronic oxygen and also heart disease. She had a cardiac catheterization May 29, 2008. The left main had 20% disease. The left anterior descending was occluded after a diagonal branch and its mid segment diagonal branch was irregular and tortuous. The circumflex artery had a mid occlusion and the right coronary artery had a proximal occlusion. She underwent a three-vessel bypass. She had a left internal mammary, left radial Y graft to the left anterior descending and obtuse marginal branch and a vein graft to the posterior descending artery branch. Her postoperative course was complicated. She eventually required flaps by plastic surgery, I am assuming for mediastinitis. She was told she can never have open heart surgery again. She says ever since that operation she has pain in her chest all the time. I kept trying to get a history of current chest pain and she kept repeating and she said chest pain ever since her surgery nine years ago. When asked if anything made it worse, she could not tell me anything made it worse. Using her nebulizer which improved her breathing would make her pain better. I really could not obtain any history of any type of new chest pain this admission. She was just recently admitted for COPD exacerbation. She says after she went home what happened yesterday is that her neighbor came over drunk and was upset with the fact that she was not contacted when she went into the hospital. Her neighbor got her all upset and anxious and she called 07-16- and that is how she ended up being readmitted. She is still short of breath. She has orthopnea. She is not able to lay down to have a cardiac catheterization at this time. 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 She has also some valve disease with moderate aortic regurgitation on previous echocardiograms. PAST MEDICAL HISTORY: Her past medical history includes: 1. Severe chronic lung disease on chronic oxygen. 2. Valvular heart disease with moderate aortic regurgitation and mild mitral regurgitation. 3. Coronary artery disease as described above. 4. Asbestosis. 5. Diabetes. 6. Hypertension. 7. Hyperlipidemia. PAST SURGICAL HISTORY: Her past surgical history includes: 1. Her open heart operation and subsequent surgeries to help her heart clear. 2. She also has had a laparotomy before. SOCIAL HISTORY: She does not drink at all. She is originally from [place]. She has lived in [place] since 1953. She continues to smoke two to three cigarettes a day. She has one son but she does not see him much because his is ill. [id number]. ALLERGIES: 1. CODEINE. 2. MORPHINE. 3. PENICILLIN. FAMILY HISTORY: Family history includes COPD in the father and cancer in her mother. REVIEW OF SYSTEMS: Denies any bleeding. The remaining review of systems is negative. PHYSICAL EXAMINATION: GENERAL: The physical exam reveals an obese alert elderly white female sitting on the side of the bed slightly tachypneic. VITAL SIGNS: Charted. She is normotensive. Telemetry is showing sinus rhythm. HEAD, EYES, EARS, NOSE, THROAT: Unremarkable. NECK: I did not appreciate any bruits. CHEST: Severely diminished breath sounds with expiratory wheezes. CARDIAC: She has S1 and S2. Regular rate and rhythm. 1/6 systolic ejection murmur. I could not appreciate any aortic regurgitation murmur. ABDOMEN: Soft. EXTREMITIES: Intact with probably mildly reduced pedal pulses. Femoral pulses are intact. EKGS: Her EKG demonstrates sinus rhythm, left ventricular hypertrophy, left ventricular strain and an old inferior myocardial infarction. LABORATORY STUDIES: Hematocrit of 39.4, white count 10,700 (it was elevated yesterday). BUN 20 with a creatinine of 0.9. Troponins were normal last admit, but this admission have been 0.21, 0.19 and 0.24. BNP 415. IMAGING STUDIES: Chest x-ray is showing stable findings per the report. Cardiac silhouette upper limits, normal size, calcification of the aorta, stable linear scar in the left mid-lung zone. IMPRESSION: This is an 82-year-old woman with extremely severe COPD. This is her second admission for a breathing exacerbation. She has a mildly elevated troponin. She had a previous bypass surgery nine years ago where the left radial artery, her left internal mammary and a vein graft were utilized. Hard to evaluate her symptoms because the chest pain she describes is pain that goes all the way back related to her bypass and related to her chest wall. I really could not obtain any specific history of angina this admission. RECOMMENDATIONS: 1. I am going to go ahead and load her with 300 milligrams of Clopidogrel and give her 75 milligrams daily to take in addition to her baby aspirin. 2. I am going add nitrate therapy on top of her metoprolol 50 twice a day. 3. Continue her on her statin and aspirin. 4. Cardiac catheterization could be considered. She is too orthopneic to allow this to happen at this time. It might be better to treat her medically in view of the severity of her lung disease. Obviously with her persistent and ongoing smoking, this has made her coronary and lung prognosis much, much worse. MD NIA Nevarez/SHANNON /11:03 AM /11:17 AM
[2018-01-02] MEDS: PANTOPRAZOLE SOD 40 MG DELAYED RELEASE TAB PO SCH (13:28)
[2018-01-02] MEDS: ISOSORBIDE MONONITRATE 30 MG CR TAB (IMDUR) PO SCH (13:29)
[2018-01-02] MEDS: LORazepam 1 MG TAB PO SCH ×2 (13:29→20:02)
--- NOTE | 2018-01-02 14:59 | EKG ---
Date Performed: 01/01/2018 Time Performed: 21:12:39 PTAGE: 82 years EKG: Sinus rhythm WITH OCCASIONAL SUPRAVENTRICULAR PREMATURE COMPLEXES LEFT VENTRICULAR HYPERTROPHY AND ST-T CHANGE IN FERIOR MYOCARDIAL INFARCTION , AGE INDETERMINATE Consider anterolateral ischemia ABNORMAL ECG PREVIOUS TRACING : 01/01/2018 15.43 DOCTOR: Lan Henning Interpretating Date/Time 01/02/2018 14:58:16
--- NOTE | 2018-01-02 14:59 | EKG ---
Date Performed: 01/01/2018 Time Performed: 15:43:34 PTAGE: 82 years EKG: Sinus rhythm WITH OCCASIONAL VENTRICULAR PREMATURE COMPLEXES LEFT VENTRICULAR HYPERTROPHY AND ST-T CHANGE INFERIO R MYOCARDIAL INFARCTION, AGE INDETERMINATE Consider anterolateral ischemia ABNORMAL ECG PREVIOUS TRACING : 12/29/2017 22.00 DOCTOR: Lan Henning Interpretating Date/Time 01/02/2018 14:57:46
--- NOTE | 2018-01-02 15:01 | EKG ---
Date Performed: 01/02/2018 Time Performed: 05:05:24 PTAGE: 82 years EKG: Sinus rhythm with PVC(s) Inferior infarct - age undetermined LVH with secondary repolarization abnormality Rosales lateral ST-T changes may be due to hypertrophy and/or ischemia Since previous tracing, no significant change noted Abnormal ECG PREVIOUS TRACING : 01/01/2018 21.12 DOCTOR: Lan Henning Interpretating Date/Time 01/02/2018 14:59:13
[2018-01-02] MEDS: PRAVASTATIN SOD 80 MG TAB PO SCH (19:59)
[2018-01-03] VITALS (13 sets, daily range): BP systolic 111–183; BP diastolic 56–74; PULSE 59–76; RESP 18–20; TEMP 97.2–98; O2SAT 93–99
[2018-01-03] MEDS: RESP: ALBUTEROL 2.5 MG/IPRATROPIUM 0.5 MG NEB (PRN) NEB ×2 (01:45→05:55)
[2018-01-03] MEDS: ISOSORBIDE MONONITRATE 30 MG CR TAB (IMDUR) PO SCH (05:36)
[2018-01-03] MEDS: HEPARIN SODIUM - SQ 10,000 UNITS/ML VIAL SQ SCH ×3 (05:36→21:33)
[2018-01-03] MEDS: LORazepam 1 MG TAB PO SCH (05:36)
--- NOTE | 2018-01-03 07:29 | PD.CARD.PN ---
Subjective Subjective Remarks SOB has not recovered but improved. Her chest does not feel as tight. Objective Medications Current Medications Medications (Trade) Dose Ordered Sig/Linden Route Start Time Stop Time Status Last Admin (NS Flush) 2 ml UNSCH PRN IV FLUSH 01/01/18 18:00 (NS Flush) 2 ml BID IV FLUSH 01/01/18 21:00 01/02/18 20:00 (Tylenol) 650 mg Q4H PRN PO 01/01/18 18:00 (Heparin Inj) 5,000 units Q8HR SQ 01/01/18 22:00 01/03/18 05:36 (Tylenol) 650 mg Q6H PRN PO 01/01/18 18:00 (Narcan Inj) 0.4 mg UNSCH PRN IV PUSH 01/01/18 18:00 (Luz-Colace) 1 tab BID PO 01/01/18 21:00 01/02/18 20:00 (Neurontin) 100 mg DAILY PO 01/02/18 09:00 01/02/18 10:02 (Lopressor) 50 mg BID PO 01/01/18 21:00 01/02/18 19:59 (Pravachol) 80 mg HS PO 01/01/18 21:00 01/02/18 19:59 (NovoLOG SUPPLEMENTAL SCALE) 1 ACHS SLIDING SCALE SQ 01/01/18 21:00 (Duoneb Neb) 1 ampule Q6HR WHILE AWAKE NEB NEB 01/01/18 20:00 01/02/18 21:02 (Duoneb Neb) 1 ampule Q2HR NEB PRN NEB 01/01/18 18:30 01/03/18 05:55 Doxycycline Hyclate 100 mg/ Sodium Chloride 100 ml @ 100 mls/hr Q12H IV 01/01/18 20:00 01/02/18 19:59 (Plavix) 75 mg DAILY PO 01/03/18 09:00 (Imdur) 30 mg DAILY@07 PO 01/02/18 11:30 01/03/18 05:36 (Ecotrin Ec) 81 mg DAILY PO 01/03/18 09:00 (Protonix) 40 mg DAILY PO 01/02/18 11:30 01/02/18 13:28 (Ativan) 1 mg Q8HR PO 01/02/18 14:00 Vital Signs / I&O Vital Signs Date Time Temp Pulse Resp B/P (MAP) Pulse Ox O2 Delivery O2 Flow Rate FiO2 01/03/18 04:00 97.8 64 20 153/63 (93) 96 01/03/18 04:00 Nasal Cannula 3.00 01/03/18 04:00 64 01/03/18 00:00 Nasal Cannula 3.00 01/03/18 00:00 59 01/03/18 00:00 97.4 67 18 148/63 (91) 97 01/02/18 21:04 95 Nasal Cannula 3.00 01/02/18 20:00 74 01/02/18 20:00 Nasal Cannula 3.00 01/02/18 20:00 97.8 74 22 113/57 (75) 94 01/02/18 19:54 97.7 77 20 113/76 (88) 96 01/02/18 16:00 Nasal Cannula 3.00 01/02/18 16:00 97.6 87 20 140/66 (90) 96 01/02/18 15:53 66 01/02/18 12:00 98.8 89 18 108/53 (71) 95 01/02/18 12:00 Nasal Cannula 3.00 01/02/18 11:59 79 01/02/18 08:58 94 Nasal Cannula 3.00 01/02/18 08:00 Nasal Cannula 3.00 01/02/18 08:00 97.6 71 18 130/67 (88) 97 01/02/18 07:57 66 I/O 01/02/18 01/02/18 01/02/18 01/03/18 01/03/18 01/03/18 07:00 15:00 23:00 07:00 15:00 23:00 Intake Total 600 ml 580 ml 240 ml Output Total 1000 ml 700 ml 900 ml Balance -400 ml -120 ml -660 ml Intake Oral 500 ml 480 ml 240 ml IV Total 100 ml 100 ml Output Urine Total 1000 ml 700 ml 900 ml # Voids 2 # Bowel Movements 1 0 Physical Exam Pt. easily awoken, sleeping fairly flat Respirations improved, not using accessory muscles Chest severely diminished with scattered exp wheezes CV S1S2 RRR, 1/6 CHEN No edema. She does not have a left radial pulse (harvested for past CABG Laboratory Microbiology Date/Time Source Procedure Growth Status 01/02/18 02:00 Sputum Expectorated Sputum Gram Stain - Final Resulted 01/02/18 02:00 Sputum Expectorated Sputum Sputum Culture Pending Resulted Imaging Last 48 hours Impressions Chest X-Ray 01/01/18 1537 Signed Impressions: Service Date/Time: Wednesday, January 01, 2018 15:59 - CONCLUSION: Stable chest x-ray. No acute finding is appreciated. Omer Hurd MD Assessment and Plan Problem List: (1) Tobacco abuse ICD Codes: Z72.0 - Tobacco use Plan: Counseled to stop (2) Chest wall discomfort ICD Codes: R07.89 - Other chest pain Plan: Required special flaps after prior CABG and has chronic chest wall pain (3) Elevated troponin ICD Codes: R74.8 - Abnormal levels of other serum enzymes Plan: Only mildly elevated and curve is flat. However they are new from recent admit. Cannot exclude troponin increase from RV strain, or CAD (4) COPD exacerbation ICD Codes: J44.1 - Chronic obstructive pulmonary disease with (acute) exacerbation Status: Acute Plan: Severe but improving. Prior asbostosis exposure and continues to smoke. 2nd hospitalization in past month (5) CAD (coronary artery disease) ICD Codes: I25.10 - Atherosclerotic heart disease of [place] coronary artery without angina pectoris Status: Acute Plan: She is bypass dependent ( before CABG had 100% of all 3 major coronaries) . 2 of her bypass conduits are arterial (SAENZ to LAD "Y" LRA to OM) and SVG to RCA. Assessment and Plan Continue therapy for COPD exacerbation. She is on good therapy for possible NSTEMI (BB, ASA, Plavix, nitrate). Big issue as to whether we pursue cardiac cath this admit. I've talked to her and she is undecided. Would like breathing stabilized first. She will not be a candidate for redo CABG due to prior mediastinitis and severe COPD. Medical therapy is a valid option. Evaluating her symptoms is challenging. I am out of town this week. Will ask Dr. Rosas or Obed to cover. Ajay Abdullahi MD Jan 03, 2018 07:29
[2018-01-03] MEDS: INSULIN ASPART SUPPLEMENTAL SCALE SQ SCH ×4 (08:00→21:00)
[2018-01-03] MEDS: DOCUSATE SODIUM 50 MG/SENNA 8.6 MG TAB PO SCH ×2 (08:54→21:33)
[2018-01-03] MEDS: GABAPENTIN 100 MG CAP PO SCH (08:54)
[2018-01-03] MEDS: ASPIRIN EC 81 MG TABEC PO SCH (08:55)
[2018-01-03] MEDS: METOPROLOL TARTRATE 50 MG TAB PO SCH ×2 (08:55→21:33)
[2018-01-03] MEDS: PANTOPRAZOLE SOD 40 MG DELAYED RELEASE TAB PO SCH (08:55)
[2018-01-03] MEDS: CLOPIDOGREL 75 MG TAB PO SCH (08:55)
[2018-01-03] MEDS: DOXYCYCLINE INJ 100 MG in SODIUM CHLORIDE 0.9% INJ 100 ML IV SCH (08:56)
[2018-01-03] MEDS: SODIUM CHLORIDE 0.9% FLUSH 10 ML FLUSH IV FLUSH SCH ×2 (08:56→21:34)
[2018-01-03] MEDS: RESP: ALBUTEROL 2.5 MG/IPRATROPIUM 0.5 MG NEB (SCH) NEB ×3 (09:02→20:12)
[2018-01-03 09:43] LABS: BICARBONATE 33.4 MEQ/L (21.0-32.0); CALCIUM 8.4 MG/DL (8.5-10.1); CREATININE 0.8 MG/DL (0.50-1.00)
[2018-01-03] MEDS: DOXYCYCLINE HYCLATE 100 MG CAP PO SCH ×2 (10:57→21:33)
--- NOTE | 2018-01-03 13:28 | HHI.PR ---
Subjective Remarks Patient reports she is feeling very fatigued today. No energy. States she will talk to her daughter regarding decision for heart catheterization. Shortness of breath is unchanged. Getting close to her baseline. No chest pain. Objective Vitals Vital Signs Date Time Temp Pulse Resp B/P (MAP) Pulse Ox O2 Delivery O2 Flow Rate FiO2 01/03/18 12:08 97.7 73 18 111/58 (75) 93 01/03/18 08:08 97.2 76 18 118/56 (76) 99 01/03/18 07:15 Nasal Cannula 2.00 01/03/18 04:00 97.8 64 20 153/63 (93) 96 01/03/18 04:00 Nasal Cannula 3.00 01/03/18 04:00 64 01/03/18 00:00 Nasal Cannula 3.00 01/03/18 00:00 59 01/03/18 00:00 97.4 67 18 148/63 (91) 97 01/02/18 21:04 95 Nasal Cannula 3.00 01/02/18 20:00 74 01/02/18 20:00 Nasal Cannula 3.00 01/02/18 20:00 97.8 74 22 113/57 (75) 94 01/02/18 19:54 97.7 77 20 113/76 (88) 96 01/02/18 16:00 Nasal Cannula 3.00 01/02/18 16:00 97.6 87 20 140/66 (90) 96 01/02/18 15:53 66 I/O 01/02/18 01/02/18 01/02/18 01/03/18 01/03/18 01/03/18 07:00 15:00 23:00 07:00 15:00 23:00 Intake Total 600 ml 580 ml 240 ml Output Total 1000 ml 700 ml 900 ml Balance -400 ml -120 ml -660 ml Intake Oral 500 ml 480 ml 240 ml IV Total 100 ml 100 ml Output Urine Total 1000 ml 700 ml 900 ml # Voids 2 # Bowel Movements 1 0 Result Diagram: 01/02/18 0416 01/03/18 0840 Objective Remarks GENERAL: Elderly female, appear chronically ill CARDIOVASCULAR: Normal rate and regular rhythm without murmurs, gallops, or rubs. RESPIRATORY: Diffuse rhonchi throughout and faint expiratory wheezing. GASTROINTESTINAL: Abdomen soft, non-tender, non-distended. Normal active bowel sounds MUSCULOSKELETAL: Extremities without cyanosis, or edema. NEURO: Alert & Oriented x4 to person, place, time, situation. Moves all ext x4 PSYCH: Appropriate mood and affect. A/P Assessment and Plan 82-year-old female with: Acute hypoxic and hypercarbic respiratory failure/ COPD exacerbation The pt has a history of COPD and reports a history of asbestosis. She was just admitted to the hospital for respiratory failure and discharged the day prior to admission. CXR stable. She continues to smoke. - no steroids as the pt endorses intolerance to them. - standing and as needed nebs.. - PT/OT. - IS. -Change doxycycline to oral. -Patient was strongly counseled to stop smoking -Sputum culture and gram stain. NSTEMI Trop elevated at 0.21. The pt has chronic chest pain and takes NTG regularly. Cardiac enzymes seems to plateau. - Telemetry. -Cardiology is following and discussing possibility of heart catheterization during this admission. Patient is undecided. States she will talk to her daughter - Continue metoprolol, aspirin, and nitroglycerin as needed. DM On glipizide as an outpt. - hold glipizide. - gabapentin for neuropathy. - ISS. Leukocytosis Resolved. PPx: Heparin Sebastian Woodruff MD Jan 03, 2018 13:27
--- NOTE | 2018-01-03 14:40 | ECHRPT ---
Indication: cad CONCLUSIONS Normal left ventricular size and wall thickness. The left ventricular systolic function is normal wi th an estimated ejection fraction in the range of 60-65%. Normal wall motion. Moderate mitral annular calcification. Trace mitral valve regurgitation. The aortic valve is not well visualized. Mild aortic valve regurgitation. There is mild tricuspid valve regurgitation. BP: / HR: Rhythm: MEASUREMENTS (Male / Female) Normal Values Technical Quality:Good 2D ECHO LV Diastolic Diameter PLAX 4.3 cm 4.2 - 5.9 / 3.9 - 5.3 cm LV Systolic Diameter PLAX 3.3 cm IVS Diastolic Thickness 1.4 cm 0.6 - 1.0 / 0.6 - 0.9 cm LVPW Diastolic Thickness 1.1 cm 0.6 - 1.0 / 0.6 - 0.9 cm LV Relative Wall Thickness 0.6 RV Internal Dim ED PLAX 2.8 cm M-MODE Aortic Root Diameter MM 3.3 cm LA Systolic Diameter MM 4.6 cm LA Ao Ratio MM 1.4 AV Cusp Separation MM 2.2 cm DOPPLER AI Peak Velocity 354.0 cm/s AI Peak Gradient 50.1 mmHg AI Pressure Half Time 510.0 ms Mitral E Point Velocity 95.8 cm/s Mitral A Point Velocity 109.0 cm/s Mitral E to A Ratio 0.9 LV E' Lateral Velocity 4.8 cm/s Mitral E to LV E' Lateral Ratio 20.0 LV E' Septal Velocity 5.0 cm/s Mitral E to LV E' Septal Ratio 19.3 FINDINGS LEFT VENTRICLE Normal left ventricular size and wall thickness. The left ventricular systolic function is normal wi th an estimated ejection fraction in the range of 60-65%. Normal wall motion. RIGHT VENTRICLE Normal right ventricular size and systolic function. LEFT ATRIUM The left atrial size is normal. RIGHT ATRIUM The right atrial size is normal. ATRIAL SEPTUM Normal atrial septal thickness without atrial level shunting by limited color doppler interrogation. AORTA The aortic root and proximal ascending aorta are normal in size on limited imaging. MITRAL VALVE Moderate mitral annular calcification. Trace mitral valve regurgitation. AORTIC VALVE The aortic valve is not well visualized. Mild aortic valve regurgitation. TRICUSPID VALVE Structurally normal tricuspid valve. There is mild tricuspid valve regurgitation. PULMONARY VALVE The pulmonary valve is not well visualized. VESSELS The inferior vena cava is normal in size. PERICARDIUM No pericardial effusion. Ford Rosas MD (Electronically Signed) Final Date:03 January 2018 14:39
[2018-01-03] MEDS: PRAVASTATIN SOD 80 MG TAB PO SCH (21:33)
[2018-01-04] VITALS (12 sets, daily range): BP systolic 98–140; BP diastolic 50–68; PULSE 66–76; RESP 18–22; TEMP 97.9–98.8; O2SAT 91–95
[2018-01-04] MEDS: RESP: ALBUTEROL 2.5 MG/IPRATROPIUM 0.5 MG NEB (PRN) NEB ×2 (02:55→09:59)
[2018-01-04] MEDS: HEPARIN SODIUM - SQ 10,000 UNITS/ML VIAL SQ SCH ×2 (05:57→21:14)
[2018-01-04] MEDS: ISOSORBIDE MONONITRATE 30 MG CR TAB (IMDUR) PO SCH (05:57)
[2018-01-04] MEDS: RESP: ALBUTEROL 2.5 MG/IPRATROPIUM 0.5 MG NEB (SCH) NEB ×4 (07:34→19:24)
[2018-01-04] MEDS: INSULIN ASPART SUPPLEMENTAL SCALE SQ SCH ×3 (08:00→21:00)
[2018-01-04] MEDS: SODIUM CHLORIDE 0.9% FLUSH 10 ML FLUSH IV FLUSH SCH ×2 (09:00→21:13)
[2018-01-04] MEDS: GABAPENTIN 100 MG CAP PO SCH (09:16)
[2018-01-04] MEDS: CLOPIDOGREL 75 MG TAB PO SCH (09:16)
[2018-01-04] MEDS: ASPIRIN EC 81 MG TABEC PO SCH (09:16)
[2018-01-04] MEDS: DOCUSATE SODIUM 50 MG/SENNA 8.6 MG TAB PO SCH ×2 (09:17→21:13)
[2018-01-04] MEDS: PANTOPRAZOLE SOD 40 MG DELAYED RELEASE TAB PO SCH (09:17)
[2018-01-04] MEDS: DOXYCYCLINE HYCLATE 100 MG CAP PO SCH ×2 (09:17→21:30)
[2018-01-04] MEDS: METOPROLOL TARTRATE 50 MG TAB PO SCH ×2 (09:17→21:13)
--- NOTE | 2018-01-04 09:55 | HHI.PR ---
Subjective Remarks states pain better patient states she needs to get her nebulization treatment every 4 hours scheduled minimal cough going for cath today Objective Vitals Vital Signs Date Time Temp Pulse Resp B/P (MAP) Pulse Ox O2 Delivery O2 Flow Rate FiO2 01/04/18 08:00 98.7 76 22 98/53 (68) 91 01/04/18 07:35 92 Nasal Cannula 3.00 01/04/18 04:00 97.9 76 18 114/62 (79) 95 01/04/18 04:00 Nasal Cannula 2.00 Humidified 01/04/18 03:47 72 01/04/18 00:16 66 01/04/18 00:00 98.0 70 18 112/50 (70) 95 01/04/18 00:00 Nasal Cannula 2.00 01/03/18 20:25 75 01/03/18 20:13 96 21 01/03/18 20:00 Nasal Cannula 2.00 Humidified 01/03/18 20:00 97.5 73 18 183/74 (110) 95 01/03/18 16:19 98.0 73 18 121/61 (81) 93 01/03/18 16:16 66 01/03/18 13:37 97 Nasal Cannula 2.00 01/03/18 12:08 97.7 73 18 111/58 (75) 93 01/03/18 12:00 73 I/O 01/03/18 01/03/18 01/03/18 01/04/18 01/04/18 01/04/18 07:00 15:00 23:00 07:00 15:00 23:00 Intake Total 240 ml 720 ml 810 ml Output Total 900 ml Balance -660 ml 720 ml 810 ml Intake Oral 240 ml 720 ml 810 ml Output Urine Total 900 ml # Voids 4 3 # Bowel Movements 0 0 0 Result Diagram: 01/02/18 0416 01/03/18 0840 Imaging Last Impressions Chest X-Ray 01/01/18 1537 Signed Impressions: Service Date/Time: Monday, January 01, 2018 15:59 - CONCLUSION: Stable chest x-ray. No acute finding is appreciated. Omer Hurd MD Objective Remarks awake and alert,good sats at 02 NC, speech clear anicteric lungs- few occasional expiratory wheeze regular rhythm abdomen soft, nontender extremities no edema neuro exam- unremarkable A/P Assessment and Plan 82-year-old female with: NSTEMI Trop elevated at 0.21. The pt has chronic chest pain and takes NTG regularly. - Telemetry. -Cardiology is following - going for cath today - Continue metoprolol, aspirin, Plavix. nitroglycerin as needed. Acute hypoxic and hypercarbic respiratory failure/ COPD exacerbation- patient states has home 02 prn The pt has a history of COPD and reports a history of asbestosis. She was just admitted to the hospital for respiratory failure and discharged the day prior to admission. CXR stable. She continues to smoke. - no steroids as the pt endorses intolerance to them. - standing duonebs q 4 and q 2 prn - PT/OT. - IS. -On doxycycline -Patient was strongly counseled to stop smoking DM On glipizide as an outpt. - hold glipizide. - gabapentin for neuropathy. - ISS. Leukocytosis Resolved. PPx: Heparin SQ q 8 Kwesi Chaidez MD Jan 04, 2018 09:54
[2018-01-04] MEDS ORDERED: HEPARIN-NS/PF FLUSH BAG 1,000 ML IV FLUSH ONE (10:52)
[2018-01-04] MEDS ORDERED: NITROGLYCERIN INJ 5 ML ONE ×2 (11:09→12:35)
[2018-01-04] MEDS ORDERED: MIDAZOLAM HCL 2 MG/2 ML VIAL ONE (11:09)
[2018-01-04] MEDS ORDERED: HEPARIN SODIUM - IV 10,000 UNITS/10 ML VIAL ONE (11:09)
[2018-01-04] MEDS ORDERED: VERAPAMIL HCL 5 MG/2 ML VIAL ONE (12:35)
[2018-01-04] MEDS ORDERED: IOHEXOL 350 MG/ML 100 ML BTL (for Cath Lab) OTHER ONE (13:16)
[2018-01-04] MEDS ORDERED: IOHEXOL 350 MG/ML 50 ML BTL (for Cath Lab) OTHER ONE (13:16)
--- NOTE | 2018-01-04 15:40 | PD.CONS ---
History of Present Illness Service Neurology Consult Requested By Reason for Consult Facial weakness Primary Care Physician Kailee Sage M.D. History of Present Illness History of Present Illness 82-year-old female admitted to the hospital with an STEMI, status post cardiac catheterization shortly prior to this evaluation. Neurology was consulted due to apparent new onset left facial weakness status post cast catheterization. The patient also has left visual field cut, and discussing further with her in recovery this afternoon she states that this has been going on since yesterday evening intermittently. She has been experiencing floaters and transient visual loss in the left side. Currently of the left side visual field loss is active and not resolving. The patient denies any headache, limb weakness, or paresthesias. The patient notes a history of cataracts but otherwise no visual deficits prior to yesterday. She has been in the hospital for a few days working up her end STEMI and has been on aspirin and Plavix thus far. Past Family Social History Past Medical History Asthma Diastolic CHF COPD, o2 dependent Diabetes HTN NH Past Surgical History CABG Stomach tumor removal Bilateral leg surgery Allergies: Coded Allergies: penicillin G (Verified Allergy, Mild, RASH, 01/01/18) morphine (Verified Adverse Reaction, Severe, RASH, 01/01/18) codeine (Verified Adverse Reaction, Intermediate, NAUSEA, 01/01/18) (Dominic Monzon) Review of Systems Constitutional: Negative except HPI Eye: Negative Except HPI ENMT: Negative except HPI Respiratory: Negative except HPI Cardiovascular: Negative except HPI Gastrointestinal: Negative except HPI Arie/Lymph: Negative except HPI Musculoskeletal: Negative except HPI Neurologic: Negative except HPI Psychiatric: Negative except HPI All other ROS: ROS reviewed as documented in chart (Dominic Monzon) Past Family Social History Allergies: Coded Allergies: penicillin G (Verified Allergy, Mild, RASH, 01/01/18) morphine (Verified Adverse Reaction, Severe, RASH, 01/01/18) codeine (Verified Adverse Reaction, Intermediate, NAUSEA, 01/01/18) Active Ordered Medications Current Medications Medications (Trade) Dose Ordered Sig/Linden Route Start Time Stop Time Status Last Admin (NS Flush) 2 ml UNSCH PRN IV FLUSH 01/01/18 18:00 (NS Flush) 2 ml BID IV FLUSH 01/01/18 21:00 01/04/18 09:00 (Tylenol) 650 mg Q4H PRN PO 01/01/18 18:00 (Heparin Inj) 5,000 units Q8HR SQ 01/01/18 22:00 01/04/18 05:57 (Tylenol) 650 mg Q6H PRN PO 01/01/18 18:00 (Narcan Inj) 0.4 mg UNSCH PRN IV PUSH 01/01/18 18:00 (Luz-Colace) 1 tab BID PO 01/01/18 21:00 01/04/18 09:17 (Neurontin) 100 mg DAILY PO 01/02/18 09:00 01/04/18 09:16 (Lopressor) 50 mg BID PO 01/01/18 21:00 01/04/18 09:17 (Pravachol) 80 mg HS PO 01/01/18 21:00 01/03/18 21:33 (NovoLOG SUPPLEMENTAL SCALE) 1 ACHS SLIDING SCALE SQ 01/01/18 21:00 (Duoneb Neb) 1 ampule Q2HR NEB PRN NEB 01/01/18 18:30 01/04/18 09:59 (Plavix) 75 mg DAILY PO 01/03/18 09:00 01/04/18 09:16 (Imdur) 30 mg DAILY@07 PO 01/02/18 11:30 01/04/18 05:57 (Ecotrin Ec) 81 mg DAILY PO 01/03/18 09:00 01/04/18 09:16 (Protonix) 40 mg DAILY PO 01/02/18 11:30 01/04/18 09:17 (Vibramycin) 100 mg BID PO 01/03/18 09:30 01/04/18 09:17 (Duoneb Neb) 1 ampule Q4HR NEB NEB 01/04/18 12:00 (Dominic Monzon) Exam I&O / VS Vital Signs Date Time Temp Pulse Resp B/P (MAP) Pulse Ox O2 Delivery O2 Flow Rate FiO2 01/04/18 13:27 96 Room Air 01/04/18 08:00 98.7 76 22 98/53 (68) 91 01/04/18 07:35 92 Nasal Cannula 3.00 01/04/18 07:15 Nasal Cannula 2.00 01/04/18 04:00 97.9 76 18 114/62 (79) 95 01/04/18 04:00 Nasal Cannula 2.00 Humidified 01/04/18 03:47 72 01/04/18 00:16 66 01/04/18 00:00 98.0 70 18 112/50 (70) 95 01/04/18 00:00 Nasal Cannula 2.00 01/03/18 20:25 75 01/03/18 20:13 96 21 01/03/18 20:00 Nasal Cannula 2.00 Humidified 01/03/18 20:00 97.5 73 18 183/74 (110) 95 01/03/18 16:19 98.0 73 18 121/61 (81) 93 01/03/18 16:16 66 General: Alert and Oriented, No acute distress Eye: PERRL Respiratory: Non-labored respirations, Symmetrical expansion Cardiology: Normal rate Neurologic: Alert, Oriented, Normal sensory, Normal DTR's Psychiatric: Cooperative, Appropriate mood & affect, Normal judgement Exam Comments Alert and oriented 3, speech is fluent, eyes will not deviate left of midline on EOM, left visual field cut with left homonymous hemianopsia, gross left facial weakness noted, tongue protrudes midline, sensory intact throughout the face, intact pinprick throughout the extremities, moves all 4 extremities to gravity with no focal weakness, testing is limited due to cardiac catheterization prior to exam, plantar flexor (Dominic Monzon) Review/Management Diagnosis/Plan: (1) CAD (coronary artery disease) ICD Codes: I25.10 - Atherosclerotic heart disease of [place] coronary artery without angina pectoris Status: Acute Plan: Patient status post cardiac catheterization earlier today Has been on aspirin and Plavix May need Aggrenox versus OAC (2) CHF exacerbation ICD Codes: I50.9 - Heart failure, unspecified Status: Acute Plan: Per cardiology Follow-up on catheterization (3) COPD exacerbation ICD Codes: J44.1 - Chronic obstructive pulmonary disease with (acute) exacerbation Status: Acute Plan: Patient is O2 dependent (4) Diabetes 1.5, managed as type 2 ICD Codes: E13.9 - Other specified diabetes mellitus without complications Status: Acute Plan: Glycemic control (5) Hypertension ICD Codes: I10 - Essential (primary) hypertension Status: Acute (6) Hyperlipidemia ICD Codes: E78.5 - Hyperlipidemia, unspecified Status: Acute Plan: Statin (Nicolás,Dominic Del PA) Daily Summary pt seen and examined. agree with PA. post-cath facial droop. nihss 2. mild dysarthria. cardiology felt high risk for iv tpa. based on minimal deficit and risk , iv tpa not given. also, pt with c/o of vision changes to the left hemifield since yesterday but states it might be her floaters, another contraindication. f/u carotid u/s (Facundo Rust MD) Problem Qualifiers (1) CHF exacerbation: Qualified Codes: I50.9 - Heart failure, unspecified Dominic Monzon Jan 04, 2018 15:40 Facundo Rust MD Jan 04, 2018 19:54
--- NOTE | 2018-01-04 17:28 | RADRPT ---
EXAM DATE/TIME: 01/04/2018 16:02 [facility] COMPARISON: MRI BRAIN W/O CONTRAST, January 04, 2018, 16:02. INDICATIONS : CVA. MEDICAL HISTORY : Hypertension. Chronic obstructive pulmonary disease. Hypercholesterolemia. CAD. CHF. Diabetes. [place]. SURGICAL HISTORY : CABG Right knee. Stomach mass removed. Jaw. ENCOUNTER: Subsequent ACUITY: 1 day PAIN SCORE: 0/10 LOCATION: cranial Please note a normal MRA of the brain does not entirely exclude the possibility of a small aneurysm, nor the possibility of distal intracranial vessel disease. TECHNIQUE: 3D time of flight MRA was performed. Source images, multiplanar STS MIP, and 3D volume MIP reconstru ctions were reviewed. FINDINGS: Motion degraded exam. origin of both posterior cerebral arteries. No evidence of major vessel o cclusion. No definite aneurysm or vascular malformation. CONCLUSION: Motion degraded exam grossly negative for acute vascular process Omer Mercado MD on January 04, 2018 at 17:17 Board Certified Radiologist. This report was verified electronically.
--- NOTE | 2018-01-04 17:31 | RADRPT ---
EXAM DATE/TIME: 01/04/2018 16:02 [facility] COMPARISON: No previous studies available for comparison. INDICATIONS : CVA. MEDICAL HISTORY : Hypertension. Chronic obstructive pulmonary disease. Myocardial infarction. CAD. CHF. Diabetes. [place]. SURGICAL HISTORY : CABG Right knee. Stomach mass removed. Jaw. ENCOUNTER: Subsequent ACUITY: 1 day PAIN SCORE: 0/10 LOCATION: cranial TECHNIQUE: Multiplanar, multisequence MRI of the brain was performed without contrast. FINDINGS: The patient was unable to tolerate a complete exam and there is motion on the T2 sequences obtained w ith rapid acquisition technique (axial FLAIR and sagittal T1). No gross abnormality seen. No eviden ce of mass effect. The ventricles are normal in size for age. There are a few scattered areas of T2 prolongation in the supratentorial white matter which very in size from several millimeters to 11 mm . No evidence of mass effect. No evidence of blood products. The posterior fossa structures are gr ossly intact. A diffusion weighted acquisition was also performed and most of the images are diagnostic. The findi ngs do suggest possible restricted diffusion on the right side in the mid suprasylvian cortex. CONCLUSION: 1. Incomplete scan acquisition demonstrates findings suggesting acute infarction in the mid suprasylv terry temporal region on the limited images. The area of concern is in a small vessel vascular distrib ution. Kevin Jordan MD on January 04, 2018 at 17:25 Board Certified Radiologist. This report was verified electronically.
--- NOTE | 2018-01-04 21:10 | PD.CARD.PN ---
Subjective Subjective Remarks Patient was seen earlier today after catheterization multiple times, late entry After catheterization, no chest pain/SOB Did have concern for left sided facial droop with smiling and mild dysarthria Objective Medications Current Medications Medications (Trade) Dose Ordered Sig/Linden Route Start Time Stop Time Status Last Admin (NS Flush) 2 ml UNSCH PRN IV FLUSH 01/01/18 18:00 (NS Flush) 2 ml BID IV FLUSH 01/01/18 21:00 01/04/18 09:00 (Tylenol) 650 mg Q4H PRN PO 01/01/18 18:00 (Heparin Inj) 5,000 units Q8HR SQ 01/01/18 22:00 01/04/18 05:57 (Tylenol) 650 mg Q6H PRN PO 01/01/18 18:00 (Narcan Inj) 0.4 mg UNSCH PRN IV PUSH 01/01/18 18:00 (Luz-Colace) 1 tab BID PO 01/01/18 21:00 01/04/18 09:17 (Neurontin) 100 mg DAILY PO 01/02/18 09:00 01/04/18 09:16 (Lopressor) 50 mg BID PO 01/01/18 21:00 01/04/18 09:17 (Pravachol) 80 mg HS PO 01/01/18 21:00 01/03/18 21:33 (NovoLOG SUPPLEMENTAL SCALE) 1 ACHS SLIDING SCALE SQ 01/01/18 21:00 (Duoneb Neb) 1 ampule Q2HR NEB PRN NEB 01/01/18 18:30 01/04/18 09:59 (Plavix) 75 mg DAILY PO 01/03/18 09:00 01/04/18 09:16 (Imdur) 30 mg DAILY@07 PO 01/02/18 11:30 01/04/18 05:57 (Ecotrin Ec) 81 mg DAILY PO 01/03/18 09:00 01/04/18 09:16 (Protonix) 40 mg DAILY PO 01/02/18 11:30 01/04/18 09:17 (Vibramycin) 100 mg BID PO 01/03/18 09:30 01/04/18 09:17 (Duoneb Neb) 1 ampule Q4HR NEB NEB 01/04/18 12:00 01/04/18 19:24 Vital Signs / I&O Vital Signs Date Time Temp Pulse Resp B/P (MAP) Pulse Ox O2 Delivery O2 Flow Rate FiO2 01/04/18 17:13 94 Nasal Cannula 2.00 01/04/18 17:00 93 Nasal Cannula 2.00 01/04/18 13:27 96 Room Air 01/04/18 08:00 98.7 76 22 98/53 (68) 91 01/04/18 07:35 92 Nasal Cannula 3.00 01/04/18 07:15 Nasal Cannula 2.00 01/04/18 04:00 97.9 76 18 114/62 (79) 95 01/04/18 04:00 Nasal Cannula 2.00 Humidified 01/04/18 03:47 72 01/04/18 00:16 66 01/04/18 00:00 98.0 70 18 112/50 (70) 95 01/04/18 00:00 Nasal Cannula 2.00 I/O 01/03/18 01/03/18 01/03/18 01/04/18 01/04/18 01/04/18 07:00 15:00 23:00 07:00 15:00 23:00 Intake Total 240 ml 720 ml 810 ml 400 ml Output Total 900 ml Balance -660 ml 720 ml 810 ml 400 ml Intake Oral 240 ml 720 ml 810 ml IV Total 400 ml Output Urine Total 900 ml # Voids 4 3 # Bowel Movements 0 0 0 Physical Exam GENERAL: NAD, AAOx3 SKIN: Warm and dry. HEAD: Atraumatic. Normocephalic. EYES: Pupils equal and round. No scleral icterus. No injection or drainage. ENT: No nasal bleeding or discharge. Mucous membranes pink and moist. NECK: Trachea midline. No JVD. CARDIOVASCULAR: Regular rate and rhythm. RESPIRATORY: No accessory muscle use. Clear to auscultation. Breath sounds equal bilaterally. GASTROINTESTINAL: Abdomen soft, non-tender, nondistended. Hepatic and splenic margins not palpable. MUSCULOSKELETAL: Extremities without clubbing, cyanosis, or edema. No obvious deformities. NEUROLOGICAL: Awake and alert. Left sided facial droop noted, mild dysarthria PSYCHIATRIC: Appropriate mood and affect; insight and judgment normal. Imaging Last 24 hours Impressions Head Magnetic Resonance Angiography 01/04/18 0000 Signed Impressions: Service Date/Time: Thursday, January 04, 2018 16:02 - CONCLUSION: Motion degraded exam grossly negative for acute vascular process Omer Mercado MD Brain MRI 01/04/18 0000 Signed Impressions: Service Date/Time: Thursday, January 04, 2018 16:02 - CONCLUSION: 1. Incomplete scan acquisition demonstrates findings suggesting acute infarction in the mid suprasylvian temporal region on the limited images. The area of concern is in a small vessel vascular distribution. Kevin Jordan MD Assessment and Plan Problem List: (1) Tobacco abuse ICD Codes: Z72.0 - Tobacco use (2) Chest wall discomfort ICD Codes: R07.89 - Other chest pain (3) Elevated troponin ICD Codes: R74.8 - Abnormal levels of other serum enzymes (4) COPD exacerbation ICD Codes: J44.1 - Chronic obstructive pulmonary disease with (acute) exacerbation Status: Acute (5) CAD (coronary artery disease) ICD Codes: I25.10 - Atherosclerotic heart disease of [place] coronary artery without angina pectoris Status: Acute Assessment and Plan 1) Elevated trop Type 2 Hx of CABG (3/3 grafts patent) 2) COPD per primary team 3) Concern for CVA post-cath Discussed with [id number], apparently patient had decreased vision yesterday and didn't tell anyone, but told the nurse she had a floater. When discussing with the patient, she notes that she could not see the one side of the TV all day yesterday. Called neurology and discussed finding about the facial droop (did not have information about visual field deficits at that time), I felt too high risk for TPA with 2 arterial punctures and minimal deficits Neuro asked for MRA/MRI During the exam, patient unwilling to sit still, I was asked to give sedation but apparently the patient said she did not want any of the testing, so was not going to sedate for testing she did not want Discussed all findings with the patient's [id number] ObedGeremias Abhinav BURNS Jan 04, 2018 21:10
[2018-01-04] MEDS: PRAVASTATIN SOD 80 MG TAB PO SCH (21:13)
[2018-01-05] VITALS (28 sets, daily range): BP systolic 136–159; BP diastolic 55–70; PULSE 62–93; RESP 16–18; TEMP 98–98.8; O2SAT 92–97
[2018-01-05] MEDS: RESP: ALBUTEROL 2.5 MG/IPRATROPIUM 0.5 MG NEB (SCH) NEB ×7 (00:05→23:16)
[2018-01-05] MEDS: ISOSORBIDE MONONITRATE 30 MG CR TAB (IMDUR) PO SCH (05:37)
[2018-01-05] MEDS: HEPARIN SODIUM - SQ 10,000 UNITS/ML VIAL SQ SCH ×3 (05:38→22:47)
[2018-01-05] MEDS: INSULIN ASPART SUPPLEMENTAL SCALE SQ SCH ×4 (08:43→23:01)
--- NOTE | 2018-01-05 09:46 | HHI.PR ---
Review/Management Diagnosis/Plan: (1) Acute right MCA stroke ICD Codes: I63.511 - Cerebral infarction due to unspecified occlusion or stenosis of right middle cerebral artery Status: Acute Plan: mri brain images reviewed. mra brain nml recs doing well p.t. f/u carotid u/s on plavix/statin (2) CAD (coronary artery disease) ICD Codes: I25.10 - Atherosclerotic heart disease of [place] coronary artery without angina pectoris Status: Acute Plan: per cardiology (3) CHF exacerbation ICD Codes: I50.9 - Heart failure, unspecified Status: Acute Plan: Per cardiology Follow-up on catheterization (4) COPD exacerbation ICD Codes: J44.1 - Chronic obstructive pulmonary disease with (acute) exacerbation Status: Acute Plan: Patient is O2 dependent (5) Diabetes 1.5, managed as type 2 ICD Codes: E13.9 - Other specified diabetes mellitus without complications Status: Acute Plan: Glycemic control (6) Hypertension ICD Codes: I10 - Essential (primary) hypertension Status: Acute (7) Hyperlipidemia ICD Codes: E78.5 - Hyperlipidemia, unspecified Status: Acute Plan: Statin Subjective Subjective Comments No acute events reported No headache No chest pain No dyspnea Active Medications Current Medications Medications (Trade) Dose Ordered Sig/Linden Route Start Time Stop Time Status Last Admin (NS Flush) 2 ml UNSCH PRN IV FLUSH 01/01/18 18:00 (NS Flush) 2 ml BID IV FLUSH 01/01/18 21:00 01/04/18 21:13 (Tylenol) 650 mg Q4H PRN PO 01/01/18 18:00 (Heparin Inj) 5,000 units Q8HR SQ 01/01/18 22:00 01/04/18 21:14 (Tylenol) 650 mg Q6H PRN PO 01/01/18 18:00 (Narcan Inj) 0.4 mg UNSCH PRN IV PUSH 01/01/18 18:00 (Luz-Colace) 1 tab BID PO 01/01/18 21:00 01/04/18 21:13 (Neurontin) 100 mg DAILY PO 01/02/18 09:00 01/04/18 09:16 (Lopressor) 50 mg BID PO 01/01/18 21:00 01/04/18 21:13 (Pravachol) 80 mg HS PO 01/01/18 21:00 01/04/18 21:13 (NovoLOG SUPPLEMENTAL SCALE) 1 ACHS SLIDING SCALE SQ 01/01/18 21:00 (Duoneb Neb) 1 ampule Q2HR NEB PRN NEB 01/01/18 18:30 01/04/18 09:59 (Plavix) 75 mg DAILY PO 01/03/18 09:00 01/04/18 09:16 (Imdur) 30 mg DAILY@07 PO 01/02/18 11:30 01/05/18 05:37 (Ecotrin Ec) 81 mg DAILY PO 01/03/18 09:00 01/04/18 09:16 (Protonix) 40 mg DAILY PO 01/02/18 11:30 01/04/18 09:17 (Vibramycin) 100 mg BID PO 01/03/18 09:30 01/04/18 21:30 (Duoneb Neb) 1 ampule Q4HR NEB NEB 01/04/18 12:00 01/05/18 08:06 Allergies Allergies Coded Allergies penicillin G (Verified Allergy, Mild, RASH, 01/01/18) morphine (Verified Adverse Reaction, Severe, RASH, 01/01/18) codeine (Verified Adverse Reaction, Intermediate, NAUSEA, 01/01/18) Review of Systems Constitutional: Negative except HPI Eye: Negative Except HPI ENMT: Negative except HPI Respiratory: Negative except HPI Cardiovascular: Negative except HPI Gastrointestinal: Negative except HPI Arie/Lymph: Negative except HPI Musculoskeletal: Negative except HPI Neurologic: Negative except HPI Psychiatric: Negative except HPI All other ROS: ROS reviewed as documented in chart Exam I&O / VS Vital Signs Date Time Temp Pulse Resp B/P (MAP) Pulse Ox O2 Delivery O2 Flow Rate FiO2 01/05/18 09:13 87 01/05/18 08:07 97 Nasal Cannula 2.00 01/05/18 08:07 76 01/05/18 07:38 98.6 73 17 142/70 (94) 92 01/05/18 07:38 73 01/05/18 07:31 92 Nasal Cannula 2.00 01/05/18 06:00 77 01/05/18 04:00 64 01/05/18 03:00 67 01/05/18 03:00 98.6 67 16 148/67 (94) 94 01/05/18 02:00 62 01/05/18 01:00 64 01/05/18 00:00 68 01/04/18 23:00 98.8 73 18 138/60 (86) 94 01/04/18 23:00 73 01/04/18 22:00 72 01/04/18 21:00 71 01/04/18 20:00 98.4 74 18 140/68 (92) 95 01/04/18 20:00 69 01/04/18 20:00 95 Nasal Cannula 2.00 01/04/18 19:00 74 01/04/18 17:13 94 Nasal Cannula 2.00 01/04/18 17:00 93 Nasal Cannula 2.00 01/04/18 13:27 96 Room Air General: Alert and Oriented, No acute distress Eye: PERRL Respiratory: Non-labored respirations, Symmetrical expansion Cardiology: Normal rate Neurologic: Alert, Oriented, Normal sensory, Normal motor, Normal DTR's Psychiatric: Cooperative, Appropriate mood & affect, Normal judgement Exam Comments ox 3, fluent, articulate, no aphasia, face sym with subtle weakness on testing, no drift, no neglect, no ataxia Objective Micro and Labs Date/Time Source Procedure Growth Status 01/02/18 02:00 Sputum Expectorated Sputum Gram Stain - Final Complete 01/02/18 02:00 Sputum Expectorated Sputum Sputum Culture - Final HEAVY GROWTH NORMAL RESPIRATORY TARA Complete Problem Qualifiers (1) CHF exacerbation: Qualified Codes: I50.9 - Heart failure, unspecified Facundo Rust MD Jan 05, 2018 09:46
[2018-01-05] MEDS: PANTOPRAZOLE SOD 40 MG DELAYED RELEASE TAB PO SCH (10:00)
[2018-01-05] MEDS: ASPIRIN EC 81 MG TABEC PO SCH (10:00)
[2018-01-05] MEDS: CLOPIDOGREL 75 MG TAB PO SCH (10:01)
[2018-01-05] MEDS: METOPROLOL TARTRATE 50 MG TAB PO SCH ×2 (10:01→22:47)
[2018-01-05] MEDS: GABAPENTIN 100 MG CAP PO SCH (10:01)
[2018-01-05] MEDS: DOXYCYCLINE HYCLATE 100 MG CAP PO SCH ×2 (10:01→22:46)
[2018-01-05] MEDS: SODIUM CHLORIDE 0.9% FLUSH 10 ML FLUSH IV FLUSH SCH ×2 (10:01→22:46)
[2018-01-05] MEDS: DOCUSATE SODIUM 50 MG/SENNA 8.6 MG TAB PO SCH ×2 (10:02→22:45)
--- NOTE | 2018-01-05 11:01 | RADRPT ---
EXAM DATE/TIME: 01/05/2018 10:03 [facility] COMPARISON: No previous studies available for comparison. INDICATIONS : Cerebrovascular accident. MEDICAL HISTORY : Myocardial infarction. Hypertension. Chronic obstructive pulmonary disease. Congestive heart failure. SURGICAL HISTORY : CABG. Tumor removed from stomach. Jaw wired. Right knee surgery. ENCOUNTER: Initial ACUITY: 1 day PAIN SCORE: 0/10 LOCATION: Bilateral neck PEAK SYSTOLIC VELOCITIES (cm/sec): ICA/CCA RATIO: Right: 1.2 Left: 2.6 ICA: Right: 93 Left: 155 CCA: Right: 76 Left: 59 ECA: Right: 67 Left: 94 VERTEBRAL: Right: 24 antegrade Left: 58 antegrade Elevated flow velocities and ICA/CCA ratios have been found to correlate with increased degrees of vessel stenosis, calculated as percentage of diameter relative to a normal segment of distal ICA/CCA FINDINGS: RIGHT CAROTID: There is moderate calcified atherosclerotic plaquing at the bifurcation. The waveforms are within nor mal limits. LEFT CAROTID: There is moderate calcified atherosclerotic plaquing at the bifurcation. The waveforms are within nor mal limits. VERTEBRAL ARTERIES: Antegrade flow is seen in both vertebral arteries. MISCELLANEOUS: None. CONCLUSION: 1. Right carotid: 2. Moderate calcified atherosclerotic plaquing but no hemodynamically significant stenosis evident by velocity ratios. 3. 4. Left carotid: 5. Moderate atherosclerotic plaquing with elevated peak systolic velocity ratio suggesting stenosis i n the range of 50-60%. CT angiography could be performed for more definitive assessment. 6. There is antegrade flow within the vertebral arteries. The right vertebral flow is quite slow sugg esting the right vertebral is quite small in size or possibly stenotic. Rodríguez Porter MD on January 05, 2018 at 10:54 Board Certified Radiologist. This report was verified electronically.
[2018-01-05 12:59] LABS: AUTOMATED NEUTROPHIL # 7.5 TH/MM3 (1.8-7.7); BASOPHIL % 0.4 % (0.0-2.0); EOSINOPHIL # 0.2 TH/MM3 (0-0.4); EOSINOPHIL % 2.5 % (0.0-4.0); HEMATOCRIT 37.2 % (35.0-46.0); HEMOGLOBIN 12.4 GM/DL (11.6-15.3); LYMPH % 12.9 % (9.0-44.0); LYMPHOCYTE # 1.3 TH/MM3 (1.0-4.8); MEAN CELL VOLUME 90.6 FL (80.0-100.0); MEAN CORPUSCULAR HEMOGLOBIN 30.2 PG (27.0-34.0); MEAN CORPUSCULAR HGB CONC 33.3 % (32.0-36.0); MEAN PLATELET VOLUME 7.6 FL (7.0-11.0); MONO % 7.5 % (0.0-8.0); MONOCYTE # 0.7 TH/MM3 (0-0.9); NEUT % 76.7 % (16.0-70.0); PLATELET COUNT 203 TH/MM3 (150-450); RED BLOOD COUNT 4.11 MIL/MM3 (4.00-5.30); RED CELL DISTRIBUTION WIDTH 13.9 % (11.6-17.2); WHITE BLOOD COUNT 9.8 TH/MM3 (4.0-11.0)
[2018-01-05 13:28] LABS: BICARBONATE 33.4 MEQ/L (21.0-32.0); CALCIUM 8.3 MG/DL (8.5-10.1); CREATININE 0.74 MG/DL (0.50-1.00)
--- NOTE | 2018-01-05 16:25 | HHI.PR ---
Subjective Remarks No new complaints from the patient today. She feels that her vision is improving. She has cataracts at baseline and is having symptoms similar to cataracts at this point. She doesn't feel that she has central visual loss compared to baseline and is able to watch TV. She still has mild weakness at her left lip and left hand and left leg. We discussed onset of her symptoms. She feels that the onset of symptoms may have been related to stress and anxiety which she was having in regards to not being able to get a breathing treatment quickly the night before the heart catheter procedure. She says the symptoms have been present prior to the heart catheterization the next day and she just didn't tell anybody. Objective Vital Signs Date Time Temp Pulse Resp B/P (MAP) Pulse Ox O2 Delivery O2 Flow Rate FiO2 01/05/18 16:00 74 01/05/18 15:42 81 01/05/18 15:15 98.8 74 18 159/55 (89) 94 01/05/18 14:00 70 01/05/18 13:00 84 01/05/18 12:41 87 01/05/18 12:00 78 01/05/18 11:55 85 01/05/18 11:49 98.8 93 18 145/57 (86) 92 01/05/18 11:00 75 01/05/18 10:30 78 01/05/18 10:00 84 01/05/18 09:13 87 01/05/18 09:00 86 01/05/18 08:07 97 Nasal Cannula 2.00 01/05/18 08:07 76 01/05/18 08:00 76 01/05/18 07:38 98.6 73 17 142/70 (94) 92 01/05/18 07:38 73 01/05/18 07:31 92 Nasal Cannula 2.00 01/05/18 07:00 67 01/05/18 06:00 77 01/05/18 04:00 64 01/05/18 03:00 67 01/05/18 03:00 98.6 67 16 148/67 (94) 94 01/05/18 02:00 62 01/05/18 01:00 64 01/05/18 00:00 68 01/04/18 23:00 98.8 73 18 138/60 (86) 94 01/04/18 23:00 73 01/04/18 22:00 72 01/04/18 21:00 71 01/04/18 20:00 98.4 74 18 140/68 (92) 95 01/04/18 20:00 69 01/04/18 20:00 95 Nasal Cannula 2.00 01/04/18 19:00 74 01/04/18 17:13 94 Nasal Cannula 2.00 01/04/18 17:00 93 Nasal Cannula 2.00 I/O 01/04/18 01/04/18 01/04/18 01/05/18 01/05/18 01/05/18 07:00 15:00 23:00 07:00 15:00 23:00 Intake Total 810 ml 400 ml 240 ml 720 ml Output Total 300 ml 400 ml Balance 810 ml 400 ml -60 ml 320 ml Intake Oral 810 ml 240 ml 720 ml IV Total 400 ml Output Urine Total 300 ml 400 ml # Voids 3 4 # Bowel Movements 0 0 Result Diagram: 01/05/18 1145 01/05/18 1145 Objective Remarks GENERAL: NAD, A&Ox3 HEAD: Normocephalic. NECK: Supple, trachea midline. No lymphadenopathy. EYES: No scleral icterus. No injection or drainage. CARDIOVASCULAR: Regular rate and rhythm without murmurs, gallops, or rubs. RESPIRATORY: Breath sounds equal bilaterally. No accessory muscle use. GASTROINTESTINAL: Abdomen soft, non-tender, nondistended. MUSCULOSKELETAL: No cyanosis, or edema. SKIN: Warm and dry. NEURO: No focal neurological deficitis. Mild weakness at left arm and leg, left facial droop. A/P Problem List: (1) Acute right MCA stroke ICD Code: I63.511 - Cerebral infarction due to unspecified occlusion or stenosis of right middle cerebral artery Status: Acute (2) Diabetes 1.5, managed as type 2 ICD Code: E13.9 - Other specified diabetes mellitus without complications Status: Acute (3) Hypertension ICD Code: I10 - Essential (primary) hypertension Status: Acute (4) Hyperlipidemia ICD Code: E78.5 - Hyperlipidemia, unspecified Status: Acute (5) Chest wall discomfort ICD Code: R07.89 - Other chest pain Assessment and Plan 82-year-old female admitted due to atypical chest pain and suspicion for NSTEMI , status post CVA Acute CVA Per patient report this has occurred the day before heart catheter Neurology following Continue to monitor symptoms clinically Continue physical therapy, occupational therapy, and speech therapy Carotid ultrasound shows disease on the left with a predicted range of 50-60% stenosis Chest pain Elevated troponin Negative cardiac catheter. Cardiology following COPD exacerbation Hypercarbia Hypoxia The hypercarbia and hypoxia have resolved Exacerbation is improving and she is nearing baseline Continue duo nebs as needed Continue incentive spirometry Continue doxycycline Symptoms are improving Patient has been counseled to quit smoking Diabetes mellitus type 2 Follow blood sugars Insulin sliding scale Diabetic diet DVT prophylaxis Heparin Rodríguez Borjas MD Jan 05, 2018 16:25
--- NOTE | 2018-01-05 17:54 | PD.CARD.PN ---
Subjective Subjective Remarks Patient was seen earlier today, late entry No chest pain/SOB Mild left sided facial weakness, but better than the day before Objective Medications Current Medications Medications (Trade) Dose Ordered Sig/Linden Route Start Time Stop Time Status Last Admin (NS Flush) 2 ml UNSCH PRN IV FLUSH 01/01/18 18:00 (NS Flush) 2 ml BID IV FLUSH 01/01/18 21:00 01/05/18 10:01 (Tylenol) 650 mg Q4H PRN PO 01/01/18 18:00 (Heparin Inj) 5,000 units Q8HR SQ 01/01/18 22:00 01/05/18 15:49 (Tylenol) 650 mg Q6H PRN PO 01/01/18 18:00 (Narcan Inj) 0.4 mg UNSCH PRN IV PUSH 01/01/18 18:00 (Luz-Colace) 1 tab BID PO 01/01/18 21:00 01/04/18 21:13 (Neurontin) 100 mg DAILY PO 01/02/18 09:00 01/05/18 10:01 (Lopressor) 50 mg BID PO 01/01/18 21:00 01/05/18 10:01 (Pravachol) 80 mg HS PO 01/01/18 21:00 01/04/18 21:13 (NovoLOG SUPPLEMENTAL SCALE) 1 ACHS SLIDING SCALE SQ 01/01/18 21:00 01/05/18 12:53 (Duoneb Neb) 1 ampule Q2HR NEB PRN NEB 01/01/18 18:30 01/04/18 09:59 (Plavix) 75 mg DAILY PO 01/03/18 09:00 01/05/18 10:01 (Imdur) 30 mg DAILY@07 PO 01/02/18 11:30 01/05/18 05:37 (Ecotrin Ec) 81 mg DAILY PO 01/03/18 09:00 01/05/18 10:00 (Protonix) 40 mg DAILY PO 01/02/18 11:30 01/05/18 10:00 (Vibramycin) 100 mg BID PO 01/03/18 09:30 01/05/18 10:01 (Duoneb Neb) 1 ampule Q4HR NEB NEB 01/04/18 12:00 01/05/18 15:52 Vital Signs / I&O Vital Signs Date Time Temp Pulse Resp B/P (MAP) Pulse Ox O2 Delivery O2 Flow Rate FiO2 01/05/18 17:00 76 01/05/18 16:00 74 01/05/18 15:42 81 01/05/18 15:15 98.8 74 18 159/55 (89) 94 01/05/18 14:00 70 01/05/18 13:00 84 01/05/18 12:41 87 01/05/18 12:00 78 01/05/18 11:55 85 01/05/18 11:49 98.8 93 18 145/57 (86) 92 01/05/18 11:00 75 01/05/18 10:30 78 01/05/18 10:00 84 01/05/18 09:13 87 01/05/18 09:00 86 01/05/18 08:07 97 Nasal Cannula 2.00 01/05/18 08:07 76 01/05/18 08:00 76 01/05/18 07:38 98.6 73 17 142/70 (94) 92 01/05/18 07:38 73 01/05/18 07:31 92 Nasal Cannula 2.00 01/05/18 07:00 67 01/05/18 06:00 77 01/05/18 04:00 64 01/05/18 03:00 67 01/05/18 03:00 98.6 67 16 148/67 (94) 94 01/05/18 02:00 62 01/05/18 01:00 64 01/05/18 00:00 68 01/04/18 23:00 98.8 73 18 138/60 (86) 94 01/04/18 23:00 73 01/04/18 22:00 72 01/04/18 21:00 71 01/04/18 20:00 98.4 74 18 140/68 (92) 95 01/04/18 20:00 69 01/04/18 20:00 95 Nasal Cannula 2.00 01/04/18 19:00 74 I/O 01/04/18 01/04/18 01/04/18 01/05/18 01/05/18 01/05/18 07:00 15:00 23:00 07:00 15:00 23:00 Intake Total 810 ml 400 ml 240 ml 720 ml 720 ml Output Total 300 ml 400 ml Balance 810 ml 400 ml -60 ml 320 ml 720 ml Intake Oral 810 ml 240 ml 720 ml 720 ml IV Total 400 ml Output Urine Total 300 ml 400 ml # Voids 3 4 3 # Bowel Movements 0 0 1 Physical Exam GENERAL: NAD, AAOx3 SKIN: Warm and dry. HEAD: Atraumatic. Normocephalic. EYES: Pupils equal and round. No scleral icterus. No injection or drainage. ENT: No nasal bleeding or discharge. Mucous membranes pink and moist. NECK: Trachea midline. No JVD. CARDIOVASCULAR: Regular rate and rhythm. RESPIRATORY: No accessory muscle use. Clear to auscultation. Breath sounds equal bilaterally. GASTROINTESTINAL: Abdomen soft, non-tender, nondistended. Hepatic and splenic margins not palpable. MUSCULOSKELETAL: Extremities without clubbing, cyanosis, or edema. No obvious deformities. NEUROLOGICAL: Awake and alert. Left sided facial droop noted but better than yesterday, no dysarthria PSYCHIATRIC: Appropriate mood and affect; insight and judgment normal. Laboratory Laboratory Tests Test 01/05/18 11:45 White Blood Count 9.8 TH/MM3 Red Blood Count 4.11 MIL/MM3 Hemoglobin 12.4 GM/DL Hematocrit 37.2 % Mean Corpuscular Volume 90.6 FL Mean Corpuscular Hemoglobin 30.2 PG Mean Corpuscular Hemoglobin Concent 33.3 % Red Cell Distribution Width 13.9 % Platelet Count 203 TH/MM3 Mean Platelet Volume 7.6 FL Neutrophils (%) (Auto) 76.7 % Lymphocytes (%) (Auto) 12.9 % Monocytes (%) (Auto) 7.5 % Eosinophils (%) (Auto) 2.5 % Basophils (%) (Auto) 0.4 % Neutrophils # (Auto) 7.5 TH/MM3 Lymphocytes # (Auto) 1.3 TH/MM3 Monocytes # (Auto) 0.7 TH/MM3 Eosinophils # (Auto) 0.2 TH/MM3 Basophils # (Auto) 0.0 TH/MM3 CBC Comment DIFF FINAL Differential Comment Blood Urea Nitrogen 12 MG/DL Creatinine 0.74 MG/DL Random Glucose 155 MG/DL Calcium Level 8.3 MG/DL Sodium Level 134 MEQ/L Potassium Level 3.9 MEQ/L Chloride Level 96 MEQ/L Carbon Dioxide Level 33.4 MEQ/L Anion Gap 5 MEQ/L Estimat Glomerular Filtration Rate 75 ML/MIN Imaging Last 24 hours Impressions Carotid Artery Ultrasound 01/05/18 0000 Signed Impressions: Service Date/Time: Friday, January 05, 2018 10:03 - CONCLUSION: 1. Right carotid: 2. Moderate calcified atherosclerotic plaquing but no hemodynamically significant stenosis evident by velocity ratios. 3. 4. Left carotid: 5. Moderate atherosclerotic plaquing with elevated peak systolic velocity ratio suggesting stenosis in the range of 50-60%%. CT angiography could be performed for more definitive assessment. 6. There is antegrade flow within the vertebral arteries. The right vertebral flow is quite slow suggesting the right vertebral is quite small in size or possibly stenotic. Rodríguez Porter MD Assessment and Plan Problem List: (1) Tobacco abuse ICD Codes: Z72.0 - Tobacco use (2) Chest wall discomfort ICD Codes: R07.89 - Other chest pain (3) Elevated troponin ICD Codes: R74.8 - Abnormal levels of other serum enzymes (4) COPD exacerbation ICD Codes: J44.1 - Chronic obstructive pulmonary disease with (acute) exacerbation Status: Acute (5) CAD (coronary artery disease) ICD Codes: I25.10 - Atherosclerotic heart disease of [place] coronary artery without angina pectoris Status: Acute Assessment and Plan 1) Elevated trop Type 2 Hx of CABG (3/3 grafts patent) 2) COPD per primary team 3) Concern for CVA post-cath Discussed with [id number], apparently patient had decreased vision the day before the cath with stroke like symptoms and didn't tell anyone, but told the nurse she had a floater. When discussing with the patient, she notes that she could not see the one side of the TV the day before the catheterization. 4) No further cardiovascular issues at this time Stable for discharge at the discretion of the primary and neurology team 5) PT/OT Geremias Clay DO Jan 05, 2018 17:54
[2018-01-05] MEDS: PRAVASTATIN SOD 80 MG TAB PO SCH (22:45)
[2018-01-06] VITALS (11 sets, daily range): BP systolic 135–136; BP diastolic 66–89; PULSE 65–86; RESP 16–18; TEMP 97.8–97.9; O2SAT 91–95
[2018-01-06] MEDS: RESP: ALBUTEROL 2.5 MG/IPRATROPIUM 0.5 MG NEB (SCH) NEB ×3 (03:20→11:41)
[2018-01-06 06:05] LABS: AUTOMATED NEUTROPHIL # 6.7 TH/MM3 (1.8-7.7); BASOPHIL # 0.1 TH/MM3 (0-0.2); BASOPHIL % 0.7 % (0.0-2.0); EOSINOPHIL # 0.3 TH/MM3 (0-0.4); HEMATOCRIT 38.3 % (35.0-46.0); HEMOGLOBIN 12.9 GM/DL (11.6-15.3); LYMPH % 18.7 % (9.0-44.0); LYMPHOCYTE # 1.8 TH/MM3 (1.0-4.8); MEAN CELL VOLUME 91.3 FL (80.0-100.0); MEAN CORPUSCULAR HEMOGLOBIN 30.8 PG (27.0-34.0); MEAN CORPUSCULAR HGB CONC 33.8 % (32.0-36.0); MEAN PLATELET VOLUME 7.9 FL (7.0-11.0); MONO % 8.8 % (0.0-8.0); MONOCYTE # 0.9 TH/MM3 (0-0.9); NEUT % 68.8 % (16.0-70.0); PLATELET COUNT 170 TH/MM3 (150-450); RED BLOOD COUNT 4.19 MIL/MM3 (4.00-5.30); RED CELL DISTRIBUTION WIDTH 14.3 % (11.6-17.2); WHITE BLOOD COUNT 9.8 TH/MM3 (4.0-11.0)
[2018-01-06 06:20] LABS: ALBUMIN 2.6 GM/DL (3.4-5.0); ALT (GPT) 19 U/L (10-53); AST (GOT) 15 U/L (15-37); BICARBONATE 29.7 MEQ/L (21.0-32.0); BLOOD UREA NITROGEN 12 MG/DL (7-18); CALCIUM 8.7 MG/DL (8.5-10.1); CHLORIDE 100 MEQ/L (98-107); CREATININE 0.74 MG/DL (0.50-1.00); GLOMERULAR FILTRATION RATE 75 ML/MIN (>89); GLUCOSE,RANDOM 127 MG/DL (74-106); SODIUM (NA) 136 MEQ/L (136-145)
[2018-01-06 06:22] LABS: ALKALINE PHOSPHATASE 78 U/L (45-117); TOTAL BILIRUBIN ADULT 0.3 MG/DL (0.2-1.0); TOTAL PROTEIN 5.8 GM/DL (6.4-8.2)
[2018-01-06] MEDS: ISOSORBIDE MONONITRATE 30 MG CR TAB (IMDUR) PO SCH (06:53)
[2018-01-06] MEDS: HEPARIN SODIUM - SQ 10,000 UNITS/ML VIAL SQ SCH (06:54)
[2018-01-06] MEDS: INSULIN ASPART SUPPLEMENTAL SCALE SQ SCH ×2 (07:57→12:00)
[2018-01-06] MEDS: PANTOPRAZOLE SOD 40 MG DELAYED RELEASE TAB PO SCH (09:16)
[2018-01-06] MEDS: METOPROLOL TARTRATE 50 MG TAB PO SCH (09:16)
[2018-01-06] MEDS: DOXYCYCLINE HYCLATE 100 MG CAP PO SCH (09:16)
[2018-01-06] MEDS: CLOPIDOGREL 75 MG TAB PO SCH (09:16)
[2018-01-06] MEDS: GABAPENTIN 100 MG CAP PO SCH (09:16)
[2018-01-06] MEDS: DOCUSATE SODIUM 50 MG/SENNA 8.6 MG TAB PO SCH (09:17)
[2018-01-06] MEDS: ASPIRIN EC 81 MG TABEC PO SCH (09:17)
[2018-01-06] MEDS: SODIUM CHLORIDE 0.9% FLUSH 10 ML FLUSH IV FLUSH SCH (09:17)
--- NOTE | 2018-01-06 09:18 | HHI.PR ---
Review/Management Diagnosis/Plan: (1) Acute right MCA stroke ICD Codes: I63.511 - Cerebral infarction due to unspecified occlusion or stenosis of right middle cerebral artery Status: Acute Plan: mri brain images reviewed. mra brain nml carotid u/s- rt ica- moderate plaque,not hemodynamically significant. left ica 50-60% recs neuro stable. doing well does not want to do cta's and not interested in carotid intervention at present. wants medical management on plavix/statin p.t./s.t. d/c planning from neuro and outpatient f/u in 2-3 weeks (2) CAD (coronary artery disease) ICD Codes: I25.10 - Atherosclerotic heart disease of [place] coronary artery without angina pectoris Status: Acute Plan: per cardiology (3) CHF exacerbation ICD Codes: I50.9 - Heart failure, unspecified Status: Acute Plan: Per cardiology Follow-up on catheterization (4) COPD exacerbation ICD Codes: J44.1 - Chronic obstructive pulmonary disease with (acute) exacerbation Status: Acute Plan: Patient is O2 dependent (5) Diabetes 1.5, managed as type 2 ICD Codes: E13.9 - Other specified diabetes mellitus without complications Status: Acute Plan: Glycemic control (6) Hypertension ICD Codes: I10 - Essential (primary) hypertension Status: Acute (7) Hyperlipidemia ICD Codes: E78.5 - Hyperlipidemia, unspecified Status: Acute Plan: Statin Subjective Subjective Comments No acute events reported eating without difficulty wants to go home No headache No chest pain No dyspnea Active Medications Current Medications Medications (Trade) Dose Ordered Sig/Linden Route Start Time Stop Time Status Last Admin (NS Flush) 2 ml UNSCH PRN IV FLUSH 01/01/18 18:00 (NS Flush) 2 ml BID IV FLUSH 01/01/18 21:00 01/05/18 22:46 (Tylenol) 650 mg Q4H PRN PO 01/01/18 18:00 (Heparin Inj) 5,000 units Q8HR SQ 01/01/18 22:00 01/06/18 06:54 (Tylenol) 650 mg Q6H PRN PO 01/01/18 18:00 (Narcan Inj) 0.4 mg UNSCH PRN IV PUSH 01/01/18 18:00 (Luz-Colace) 1 tab BID PO 01/01/18 21:00 01/05/18 22:45 (Neurontin) 100 mg DAILY PO 01/02/18 09:00 01/05/18 10:01 (Lopressor) 50 mg BID PO 01/01/18 21:00 01/05/18 22:47 (Pravachol) 80 mg HS PO 01/01/18 21:00 01/05/18 22:45 (NovoLOG SUPPLEMENTAL SCALE) 1 ACHS SLIDING SCALE SQ 01/01/18 21:00 01/05/18 23:01 (Duoneb Neb) 1 ampule Q2HR NEB PRN NEB 01/01/18 18:30 01/04/18 09:59 (Plavix) 75 mg DAILY PO 01/03/18 09:00 01/05/18 10:01 (Imdur) 30 mg DAILY@07 PO 01/02/18 11:30 01/06/18 06:53 (Ecotrin Ec) 81 mg DAILY PO 01/03/18 09:00 01/05/18 10:00 (Protonix) 40 mg DAILY PO 01/02/18 11:30 01/05/18 10:00 (Vibramycin) 100 mg BID PO 01/03/18 09:30 01/05/18 22:46 (Duoneb Neb) 1 ampule Q4HR NEB NEB 01/04/18 12:00 01/06/18 07:34 Allergies Allergies Coded Allergies penicillin G (Verified Allergy, Mild, RASH, 01/01/18) morphine (Verified Adverse Reaction, Severe, RASH, 01/01/18) codeine (Verified Adverse Reaction, Intermediate, NAUSEA, 01/01/18) Review of Systems Constitutional: Negative except HPI Eye: Negative Except HPI ENMT: Negative except HPI Respiratory: Negative except HPI Cardiovascular: Negative except HPI Gastrointestinal: Negative except HPI Arie/Lymph: Negative except HPI Musculoskeletal: Negative except HPI Neurologic: Negative except HPI Psychiatric: Negative except HPI All other ROS: ROS reviewed as documented in chart Exam I&O / VS Vital Signs Date Time Temp Pulse Resp B/P (MAP) Pulse Ox O2 Delivery O2 Flow Rate FiO2 01/06/18 07:36 91 Nasal Cannula 2.00 01/06/18 07:25 92 Nasal Cannula 3.00 01/06/18 07:14 97.8 76 18 136/89 (105) 92 01/06/18 07:00 71 01/06/18 00:00 65 16 136/66 (89) 95 01/06/18 00:00 73 01/05/18 20:22 98.0 68 18 136/66 (89) 95 01/05/18 20:00 67 01/05/18 20:00 Nasal Cannula 2.00 01/05/18 18:03 81 01/05/18 17:00 76 01/05/18 16:00 74 01/05/18 15:42 81 01/05/18 15:15 98.8 74 18 159/55 (89) 94 01/05/18 14:00 70 01/05/18 13:00 84 01/05/18 12:41 87 01/05/18 12:00 78 01/05/18 11:55 85 01/05/18 11:49 98.8 93 18 145/57 (86) 92 01/05/18 11:00 75 01/05/18 10:30 78 01/05/18 10:00 84 General: Alert and Oriented, No acute distress Eye: PERRL Respiratory: Non-labored respirations, Symmetrical expansion Cardiology: Normal rate Neurologic: Alert, Oriented, Normal sensory, Normal motor, Normal DTR's Psychiatric: Cooperative, Appropriate mood & affect, Normal judgement Exam Comments ox 3, fluent, articulate, no aphasia, face sym with subtle weakness on testing, no drift, no neglect, no ataxia, nihss 0 Objective Micro and Labs Laboratory Tests Test 01/05/18 11:45 01/06/18 05:20 White Blood Count 9.8 9.8 Red Blood Count 4.11 4.19 Hemoglobin 12.4 12.9 Hematocrit 37.2 38.3 Mean Corpuscular Volume 90.6 91.3 Mean Corpuscular Hemoglobin 30.2 30.8 Mean Corpuscular Hemoglobin Concent 33.3 33.8 Red Cell Distribution Width 13.9 14.3 Platelet Count 203 170 Mean Platelet Volume 7.6 7.9 Neutrophils (%) (Auto) 76.7 68.8 Lymphocytes (%) (Auto) 12.9 18.7 Monocytes (%) (Auto) 7.5 8.8 Eosinophils (%) (Auto) 2.5 3.0 Basophils (%) (Auto) 0.4 0.7 Neutrophils # (Auto) 7.5 6.7 Lymphocytes # (Auto) 1.3 1.8 Monocytes # (Auto) 0.7 0.9 Eosinophils # (Auto) 0.2 0.3 Basophils # (Auto) 0.0 0.1 CBC Comment DIFF FINAL AUTO DIFF Differential Comment AUTO DIFF CONFIRMED Blood Urea Nitrogen 12 12 Creatinine 0.74 0.74 Random Glucose 155 127 Calcium Level 8.3 8.7 Sodium Level 134 136 Potassium Level 3.9 4.6 Chloride Level 96 100 Carbon Dioxide Level 33.4 29.7 Anion Gap 5 6 Estimat Glomerular Filtration Rate 75 75 Total Protein 5.8 Albumin 2.6 Alkaline Phosphatase 78 Aspartate Amino Transf (AST/SGOT) 15 Alanine Aminotransferase (ALT/SGPT) 19 Total Bilirubin 0.3 Date/Time Source Procedure Growth Status 01/02/18 02:00 Sputum Expectorated Sputum Gram Stain - Final Complete 01/02/18 02:00 Sputum Expectorated Sputum Sputum Culture - Final HEAVY GROWTH NORMAL RESPIRATORY TARA Complete Problem Qualifiers (1) CHF exacerbation: Qualified Codes: I50.9 - Heart failure, unspecified Facundo Rust MD Jan 06, 2018 09:18
--- NOTE | 2018-01-06 09:55 | HHI.FF ---
Face to Face Verification Diagnosis: (1) Acute right MCA stroke (2) Hypertension (3) Hyperlipidemia (4) COPD exacerbation (5) CHF exacerbation (6) Diabetes 1.5, managed as type 2 Physical Therapy Order: Evaluate and Treat, Improve ambulation, Strength and gait training Occupational Therapy Order: Evaluate and Treat, Gross motor coordination, Fine motor coordination Speech Therapy Order: To Improve: Speech and communication skills, Swallowing Home Health Nursing Order: Medical education Signs/symptoms of disease process Nursing assessment with vital signs I have seen patient Maritza Richardson on 01/06/18. My clinical findings support the need for the requested home health care services because: Ltd mobility - disease progression Deconditioned w/ increased weakness Med compliance is questionable Limited ability to care for self I certify that my clinical findings support that this patient is homebound because: Unsteady gait/balance Unsafe to leave home unassisted Unable to use public transportation Rodríguez Borjas MD Jan 06, 2018 09:55
[2018-01-06] MEDS ORDERED: PRAV80TA PO (09:58)
[2018-01-06] MEDS ORDERED: PLAV75TA29 PO (09:58)
[2018-01-06] MEDS ORDERED: ISOS30TA3 PO (09:58)
--- NOTE | 2018-01-06 13:39 | HHI.DS ---
Discharge Summary Admission Date Jan 01, 2018 at 17:06 Discharge Date: Jan 06, 2018 Admitting Diagnosis Respiratory Distress; Hypoxia; CHF; COPD (1) Acute right MCA stroke ICD Code: I63.511 - Cerebral infarction due to unspecified occlusion or stenosis of right middle cerebral artery Diagnosis: Principal Status: Acute (2) Diabetes 1.5, managed as type 2 ICD Code: E13.9 - Other specified diabetes mellitus without complications Diagnosis: Principal Status: Acute (3) Hypertension ICD Code: I10 - Essential (primary) hypertension Diagnosis: Principal Status: Acute (4) Hyperlipidemia ICD Code: E78.5 - Hyperlipidemia, unspecified Diagnosis: Principal Status: Acute (5) Chest wall discomfort ICD Code: R07.89 - Other chest pain Diagnosis: Principal (6) Elevated troponin ICD Code: R74.8 - Abnormal levels of other serum enzymes Diagnosis: Principal Procedures heart cath Brief History - From Admission The patient is an 82-year-old female with a past medical history of COPD and asthma and was recently discharged from the hospital on 12/31/17 who is presenting to the hospital with shortness of breath. The patient stated that this morning her breathing got worse. She had a friend come over and the patient states that her friend made her more nervous and her breathing got worse. The patient states that she tried taking her breathing treatments but they did not work. She called for EMS and improved with treatment. EMS wanted to bring her to the hospital but the patient declined. The patient had chest pain, which she chronically has, and that resolved with administration of nitroglycerin. Her breathing continued to be labored so she called for the ambulance again a couple of hours later. The patient states that her blood sugar was low in the 70s this morning. The patient currently denies any chest pain. She says she did take a few puffs of his cigarette earlier today. She says that she does have a heart doctor she follows up with. CBC/BMP: 01/06/18 0520 01/06/18 0520 Significant Findings Laboratory Tests Test 01/05/18 11:45 01/06/18 05:20 Neutrophils (%) (Auto) 76.7 % (16.0-70.0) Random Glucose 155 MG/DL (74-106) 127 MG/DL (74-106) Calcium Level 8.3 MG/DL (8.5-10.1) Sodium Level 134 MEQ/L (136-145) Chloride Level 96 MEQ/L (98-107) Carbon Dioxide Level 33.4 MEQ/L (21.0-32.0) Estimat Glomerular Filtration Rate 75 ML/MIN (>89) 75 ML/MIN (>89) Monocytes (%) (Auto) 8.8 % (0.0-8.0) Total Protein 5.8 GM/DL (6.4-8.2) Albumin 2.6 GM/DL (3.4-5.0) PE at Discharge awake and alert,good sats at 02 NC, speech clear anicteric lungs- few occasional expiratory wheeze regular rhythm abdomen soft, nontender extremities no edema neuro exam- unremarkable Hospital Course Mrs. Richardson is an 82-year-old female. She is admitted secondary to chest pain and discomfort with an elevated troponin. Cardiac catheter was performed and showed no cardiac disease. Other history includes before the day of heart catheter patient had a change in her visual status and some weakness in her left face arm and leg. She did not report these symptoms until after her heart catheter. Workup was done at that point the patient reported these symptoms and she is found to have an acute CVA in the temporal region and the right. She has showed some good recovery from this but still has mild deficits. At this point she is medically stable for discharge to home with continuation of home health care including PT, OT, and speech therapy. Pt Condition on Discharge: Stable Discharge Disposition: Disch w/ Home Health Serv Discharge Time: > 30 minutes Discharge Instructions DIET: Follow Instructions for: As Tolerated, No Restrictions Speech Therapy-Diet Recommends: Mechanical Soft, [facility] Thickened Liquids Activities you can perform: Regular-No Restrictions Follow up Referrals: Neurology - 2 Weeks PCP Follow-up - 2 Weeks New Medications: Clopidogrel (Plavix) 75 Mg Tab 75 MG PO DAILY for Blood Clot Prevention, #30 TAB Isosorbide Mononitrate ER (Isosorbide Mononitrate ER) 30 Mg Lior 30 MG PO DAILY for Angina, #30 TAB Pravastatin (Pravachol) 80 Mg Tab 80 MG PO HS for Cholesterol Management, #30 TAB Continued Medications: Albuterol 18 GM Inh (Ventolin Hfa 18 GM Inh) 90 Mcg/Act Aer 2 PUFF INH Q4H PRN for SHORTNESS OF BREATH, #1 INHALER 0 Refills Albuterol Neb (Albuterol Neb) 2.5 Mg/3 Ml Neb 2.5 MG NEB EVERY 3-4 HOURS PRN for SHORTNESS OF BREATH, #1 NEBULE [address] (Aspir-Low) 81 Mg Tabdr 81 TAB PO DAILY Bumetanide (Bumetanide) 2 Mg Tab 1 MG PO DAILY, TAB 0 Refills Gabapentin (Gabapentin) 100 Mg Cap 100 MG PO DAILY, #30 CAP 0 Refills Glipizide ER (Glipizide ER) 5 Mg Lior 5 MG PO DAILY for Blood Sugar Management, #30 TAB 0 Refills Take with breakfast or first main meal of the day. Ipratropium Neb (Ipratropium Neb) 0.5 Mg/2.5 Ml Amp 0.5 MG NEB 3-4 TIMES A DAY PRN for SHORTNESS OF BREATH, #1 NEBULE 0 Refills Metoprolol Tartrate (Metoprolol Tartrate) 50 Mg Tab 50 MG PO BID, #60 TAB 0 Refills Nitroglycerin SL (Nitrostat SL) 0.4 Mg Subl 0.4 MG SL DIRECTED PRN for CHEST PAIN, #100 TAB.SL 0 Refills 1 tablet under the tongue as needed for chest pain. Repeat every 5 minutes for a total of 3 DOSES or call 911 if NO relief. Discontinued Medications: Doxycycline Hyclate (Doxycycline Hyclate) 100 Mg Cap 100 MG PO BID for Infection for 6 Days, #12 CAP 0 Refills Simvastatin (Simvastatin) 40 Mg Tab 40 MG PO HS for Cholesterol Management, #30 TAB 0 Refills Rodríguez Borjas MD Jan 06, 2018 13:39
--- NOTE | 2018-01-06 13:40 | PD.CARD.PN ---
Subjective Subjective Remarks No chest pain/SOB Mild left sided facial weakness, but better than the day before Objective Medications Current Medications Medications (Trade) Dose Ordered Sig/[place] Route Start Time Stop Time Status Last Admin (NS Flush) 2 ml UNSCH PRN IV FLUSH 01/01/18 18:00 (NS Flush) 2 ml BID IV FLUSH 01/01/18 21:00 01/06/18 09:17 (Tylenol) 650 mg Q4H PRN PO 01/01/18 18:00 (Heparin Inj) 5,000 units Q8HR SQ 01/01/18 22:00 01/06/18 06:54 (Tylenol) 650 mg Q6H PRN PO 01/01/18 18:00 (Narcan Inj) 0.4 mg UNSCH PRN IV PUSH 01/01/18 18:00 (Luz-Colace) 1 tab BID PO 01/01/18 21:00 01/06/18 09:17 (Neurontin) 100 mg DAILY PO 01/02/18 09:00 01/06/18 09:16 (Lopressor) 50 mg BID PO 01/01/18 21:00 01/06/18 09:16 (Pravachol) 80 mg HS PO 01/01/18 21:00 01/05/18 22:45 (NovoLOG SUPPLEMENTAL SCALE) 1 ACHS SLIDING SCALE SQ 01/01/18 21:00 01/05/18 23:01 (Duoneb Neb) 1 ampule Q2HR NEB PRN NEB 01/01/18 18:30 01/04/18 09:59 (Plavix) 75 mg DAILY PO 01/03/18 09:00 01/06/18 09:16 (Imdur) 30 mg DAILY@07 PO 01/02/18 11:30 01/06/18 06:53 (Ecotrin Ec) 81 mg DAILY PO 01/03/18 09:00 01/06/18 09:17 (Protonix) 40 mg DAILY PO 01/02/18 11:30 01/06/18 09:16 (Vibramycin) 100 mg BID PO 01/03/18 09:30 01/06/18 09:16 (Duoneb Neb) 1 ampule Q4HR NEB NEB 01/04/18 12:00 01/06/18 11:41 Vital Signs / I&O Vital Signs Date Time Temp Pulse Resp B/P (MAP) Pulse Ox O2 Delivery O2 Flow Rate FiO2 01/06/18 13:00 86 01/06/18 12:00 84 01/06/18 11:41 97.9 81 18 135/71 (92) 93 01/06/18 11:00 79 01/06/18 10:00 76 01/06/18 09:00 76 01/06/18 08:00 74 01/06/18 07:36 91 Nasal Cannula 2.00 01/06/18 07:25 92 Nasal Cannula 3.00 01/06/18 07:14 97.8 76 18 136/89 (105) 92 01/06/18 07:00 71 01/06/18 00:00 65 16 136/66 (89) 95 01/06/18 00:00 73 01/05/18 20:22 98.0 68 18 136/66 (89) 95 01/05/18 20:00 67 01/05/18 20:00 Nasal Cannula 2.00 01/05/18 18:03 81 01/05/18 17:00 76 01/05/18 16:00 74 01/05/18 15:42 81 01/05/18 15:15 98.8 74 18 159/55 (89) 94 01/05/18 14:00 70 I/O 01/05/18 01/05/18 01/05/18 01/06/18 01/06/18 01/06/18 07:00 15:00 23:00 07:00 15:00 23:00 Intake Total 720 ml 720 ml Output Total 400 ml Balance 320 ml 720 ml Intake Oral 720 ml 720 ml Output Urine Total 400 ml # Voids 4 4 1 # Bowel Movements 0 2 Physical Exam GENERAL: NAD, AAOx3 SKIN: Warm and dry. HEAD: Atraumatic. Normocephalic. EYES: Pupils equal and round. No scleral icterus. No injection or drainage. ENT: No nasal bleeding or discharge. Mucous membranes pink and moist. NECK: Trachea midline. No JVD. CARDIOVASCULAR: Regular rate and rhythm. RESPIRATORY: No accessory muscle use. Clear to auscultation. Breath sounds equal bilaterally. GASTROINTESTINAL: Abdomen soft, non-tender, nondistended. Hepatic and splenic margins not palpable. MUSCULOSKELETAL: Extremities without clubbing, cyanosis, or edema. No obvious deformities. NEUROLOGICAL: Awake and alert. Left sided facial droop noted but better than yesterday, no dysarthria PSYCHIATRIC: Appropriate mood and affect; insight and judgment normal. Laboratory Laboratory Tests Test 01/06/18 05:20 White Blood Count 9.8 TH/MM3 Red Blood Count 4.19 MIL/MM3 Hemoglobin 12.9 GM/DL Hematocrit 38.3 % Mean Corpuscular Volume 91.3 FL Mean Corpuscular Hemoglobin 30.8 PG Mean Corpuscular Hemoglobin Concent 33.8 % Red Cell Distribution Width 14.3 % Platelet Count 170 TH/MM3 Mean Platelet Volume 7.9 FL Neutrophils (%) (Auto) 68.8 % Lymphocytes (%) (Auto) 18.7 % Monocytes (%) (Auto) 8.8 % Eosinophils (%) (Auto) 3.0 % Basophils (%) (Auto) 0.7 % Neutrophils # (Auto) 6.7 TH/MM3 Lymphocytes # (Auto) 1.8 TH/MM3 Monocytes # (Auto) 0.9 TH/MM3 Eosinophils # (Auto) 0.3 TH/MM3 Basophils # (Auto) 0.1 TH/MM3 CBC Comment AUTO DIFF Differential Comment AUTO DIFF CONFIRMED Blood Urea Nitrogen 12 MG/DL Creatinine 0.74 MG/DL Random Glucose 127 MG/DL Total Protein 5.8 GM/DL Albumin 2.6 GM/DL Calcium Level 8.7 MG/DL Alkaline Phosphatase 78 U/L Aspartate Amino Transf (AST/SGOT) 15 U/L Alanine Aminotransferase (ALT/SGPT) 19 U/L Total Bilirubin 0.3 MG/DL Sodium Level 136 MEQ/L Potassium Level 4.6 MEQ/L Chloride Level 100 MEQ/L Carbon Dioxide Level 29.7 MEQ/L Anion Gap 6 MEQ/L Estimat Glomerular Filtration Rate 75 ML/MIN Assessment and Plan Problem List: (1) Tobacco abuse ICD Codes: Z72.0 - Tobacco use (2) Chest wall discomfort ICD Codes: R07.89 - Other chest pain (3) Elevated troponin ICD Codes: R74.8 - Abnormal levels of other serum enzymes (4) COPD exacerbation ICD Codes: J44.1 - Chronic obstructive pulmonary disease with (acute) exacerbation Status: Acute (5) CAD (coronary artery disease) ICD Codes: I25.10 - Atherosclerotic heart disease of [place] coronary artery without angina pectoris Status: Acute Assessment and Plan 1) Elevated trop Type 2 Hx of CABG (3/3 grafts patent) 2) COPD per primary team 3) Concern for CVA post-cath Discussed with [id number], apparently patient had decreased vision the day before the cath with stroke like symptoms and didn't tell anyone, but told the nurse she had a floater. When discussing with the patient, she notes that she could not see the one side of the TV the day before the catheterization. 4) No further cardiovascular issues at this time Stable for discharge at the discretion of the primary and neurology team 5) PT/OT Geremias Clay DO Jan 06, 2018 13:40
--- NOTE | 2018-01-07 11:18 | MA ---
cc: GEREMIAS TONG DO DATE: January 04, 2018 PROCEDURE Left heart catheterization, coronary angiogram, bypass angiogram, SEDIATION: Moderate sedation 70 minutes PREPROCEDURE DIAGNOSIS NSTEMI, shortness of breath. POSTPROCEDURE DIAGNOSIS N-STEMI type 2, coronary artery disease history of coronary artery bypass graft x3 (3/3 grafts patent). MEDICATIONS 1. Versed 0.5 mg. 1. Fentanyl 25 mcg. 2. Heparin 4000 units. 3. Verapamil 2.5 mg. 4. Nitro 200 mcg. CONTRAST 130 cc. FLUOROSCOPY: 23.6 minutes SEDATION: Moderate sedation 70 minutes ESTIMATED BLOOD LOSS 10 cc PROCEDURAL SUMMARY: Maritza Sinclair is a pleasant 82-year-old female who originally presented with COPD exacerbation was found to have elevated troponin. Because of this recommended cardiac catheterization. Risks, benefits and alternatives were explained to her and she consented as such. She was brought to lab and prepped in the usual sterile fashion. Right femoral artery was accessed using modified Seldinger technique and placement of a 5-Thai sheath. This was easily aspirated and flushed. The JR-4 was advanced over a J-wire to the ascending aorta and across the aortic valve for measurement of left ventricular pressure. This was pulled back across the aortic valve showing no significant gradient of aortic stenosis. JR-4 was used for selective angiography of the right coronary artery system. I attempted to advance the JR-4 of the right subclavian to the SAENZ but was unable to on multiple attempts. This was then pulled back and taken up the left subclavian and exchanged out for an IM catheter which was used for selective angiography of the SAENZ to LAD. This was exchanged out for a JL-4 which was used for selective angiography of the left coronary artery system. I attempted multiple times to access SAENZ but was unable to due to tortuosity throughout the system and so the right radial artery was accessed at that point. A JR-4 was advanced to the proximal subclavian and then exchanged out for an IM which was used for selective angiography of the SAENZ and PDA. This was removed over a J-wire. Radial band was placed over the arteriotomy site for hemostasis. Femoral sheath was sutured in place and will be removed once ACTs have an acceptable value. The patient left the medical lab technologist cardiovascularly stable. IMPRESSION I findings left main normal size vessel with 20% disease distally. It bifurcates into an LAD and circumflex. LAD normal-size vessel with 100% occlusion in the midportion. It gives off one diagonal with overall no significant disease but extensive tortuosity. Left circumflex 100% occlusion in the proximal to midportion. RCA 100% occlusion in the proximal portion. SAENZ to LAD with Y-graft radial to obtuse marginal patent. SAENZ touches down to the LAD and fills both antegrade and retrograde. Radiograph has 40% disease in the proximal portion, it its take off and touches down to a small obtuse marginal which fills both antegrade and retrograde. Overall the grafts supply collaterals to the distal posterior lateral branch of the RCA. RCA. Chart and started should be reminded to PDA. Patent, filling the distal PDA as well as retrograde part of the RCA. LVEDP 15. IMPRESSION 1. N-STEMI type 2 most likely due to her COPD exacerbation. 2. Coronary artery disease with a history of coronary artery bypass graft (3/3 grafts patent). RECOMMENDATIONS 1. Ms. Richardson will be recommended continued medical therapy as she has no significant lesions to intervene on at this time. 2. She will be continued to be treated for her COPD exacerbation per the primary team. Thank you for allowing me to see Maritza Richardson, if there are any questions please do not hesitate to call. Geremias Tong DO VGP/mh /9:49 PM /10:01 AM
== END 2018-01-06 13:45 | disposition home health service (06) | DRG 189 ==
LOC: NEPC 15:28 → NEDA 17:06 → N04A 18:42 → HCIS 01-04 13:09
PROVIDERS: ADMIT Hospitalist; ATTEND Hospitalist
PROC: B2131ZZ Fluoroscopy of Multiple Coronary Artery Bypass Grafts using Low Osmolar Contrast (ICD-10-PCS; 2018-01-04)
PROC: 4A023N7 Measurement of Cardiac Sampling and Pressure, Left Heart, Percutaneous Approach (ICD-10-PCS; 2018-01-04)
PROC: B2111ZZ Fluoroscopy of Multiple Coronary Arteries using Low Osmolar Contrast (ICD-10-PCS; principal; 2018-01-04 10:00)
DX: J96.02 Acute respiratory failure with hypercapnia (principal); I63.511 Cerebral infarction due to unspecified occlusion or stenosis of right middle cerebral artery; I21.A1 Myocardial infarction type 2; I50.33 Acute on chronic diastolic (congestive) heart failure; J44.1 Chronic obstructive pulmonary disease with (acute) exacerbation; I11.0 Hypertensive heart disease with heart failure; J96.01 Acute respiratory failure with hypoxia; E11.40 Type 2 diabetes mellitus with diabetic neuropathy, unspecified; Z79.84 Long term (current) use of oral hypoglycemic drugs; J61 Pneumoconiosis due to asbestos and other mineral fibers; F17.210 Nicotine dependence, cigarettes, uncomplicated; Z99.81 Dependence on supplemental oxygen; E78.5 Hyperlipidemia, unspecified; I25.10 Atherosclerotic heart disease of native coronary artery without angina pectoris; Z95.1 Presence of aortocoronary bypass graft
CPT/HCPCS: 70544; 70551; 71045; 80048; 80053; 82550; 82552; 82948; 83735; 83880; 84484; 85007; 85025; 85027; 85347; 85610; 85730; 87070; 87205; 93005; 93306; 93458; 93880; 94150; 94640; 94664; 96374; 99152; 99153; C1769; C1893; J1644; J1815; J1940; J2250; J3010; Q9967